=== PATIENT | female | born 1960 | race Caucasian/White ===

== ENCOUNTER → 2020-10-05 13:18 | Outpatient (BNVA) | payer OTHER, SELFPAY | PROVIDERS: PCP Internal Medicine; Referring Provider Internal Medicine; Visit Provider Urology ==

== ENCOUNTER → 2021-06-02 13:24 | Outpatient (BNVA) | payer OTHER, SELFPAY | PROVIDERS: PCP Internal Medicine | DX: N39.0 Urinary tract infection, site not specified (principal) | CPT/HCPCS: 99212 ==

== ENCOUNTER 2022-02-03 11:36 | Outpatient (REF) | payer OTHER, SELFPAY ==
--- NOTE | ~2022-02-03 | MM_ITS ---
EXAMINATION: MM SCREENING DIGITAL BREAST TOMOSYNTHESIS, BILATERAL CLINICAL INFORMATION: Screening. Asymptomatic. The lifetime risk of breast cancer based on the Tyrer-Cuzick Model is 9%. COMPARISON: Mammography: 07/15/2019; outside mammography 09/03/2018, 10/09/2016 ([facility]). TECHNIQUE: Digital breast tomosynthesis is performed in both the craniocaudal and mediolateral oblique views along with computer-aided detection (CAD). Synthesized 2D images are generated from the tomosynthesis. FINDINGS: There are scattered areas of fibroglandular density (ACR BI-RADS breast composition Category b). Parenchymal pattern is similar to prior studies. There are stable asymmetries. No significant mass or architectural abnormality or abnormal calcifications. The axilla and skin contours are unremarkable. Left breast again has stable oval nodule upper outer quadrant and an intramammary node posterior upper outer quadrant. Right breast again shows some focal duct ectasia central inner breast. There are no significant changes. MM/MM tomosynthesis screening BI IMPRESSION: No significant changes from prior exams. ASSESSMENT: BI-RADS 2: Benign RECOMMENDATION: Routine annual mammography screening. This patient's information was entered into a reminder system with a target due date for their next mammogram.
== END 2022-02-03 11:37 | disposition home or self-care (01) ==
LOC: HO.MAMMO 11:36
PROVIDERS: PCP Internal Medicine; Visit Provider Internal Medicine
DX: Z12.31 Encounter for screening mammogram for malignant neoplasm of breast (principal)
CPT/HCPCS: 77063; 77067

== ENCOUNTER 2022-02-23 10:08 | Outpatient (REF) | payer OTHER, SELFPAY ==
--- NOTE | ~2022-02-23 | MM_ITS ---
EXAMINATION: BONE DENSITOMETRY CLINICAL INDICATION: Menopause. COMPARISON: Baseline BD dated 07/15/2019. TECHNIQUE: Using a [employer] DXA System (software version: 13.1) manufactured by [employer], dual-energy x-ray absorptiometry was performed of the lumbar spine and left hip. The images are of good technical quality. Summary results are attached. FINDINGS: AP SPINE L1-L4: Current: BMD 1.013 g/cm2, Z-score 0.0, T-score -1.4, osteopenia, 0.5% increase from baseline (<5% change is not significant). Baseline: BMD 1.008 g/cm2. LEFT FEMUR, NECK: Current: BMD 0.655 g/cm2, Z-score -1.4, T-score -2.8, osteoporosis. Baseline: BMD 0.678 g/cm2. LEFT FEMUR, TOTAL: Current: BMD 0.651 g/cm2, Z-score -1.7, T-score -2.8, osteoporosis, 7.3% decrease from baseline (<5% change is not significant). Baseline: BMD 0.702 g/cm2. IDENTIFIED RISK FACTORS: Early menopause, secondary osteoporosis, osteoporosis, 3 or more alcoholic drinks per day, low body weight. HISTORY OF FRACTURE: None listed. MEDICATIONS: Calcium or multivitamin. MM/XR DEXA axial skeleton IMPRESSION: 1. DIAGNOSIS: Osteoporosis based on the lowest T-score value of -2.8 in the femoral neck and total femur applying World Health Organization criteria. 2. 10-YEAR FRACTURE RISK PREDICTION, FRAX: Major osteoporotic fracture (clinical spine, forearm, hip or shoulder) 13.8%. Hip fracture 4.2%. 3. Treatment Recommendations: NOF guidelines recommend consideration for treatment in postmenopausal women and men age 50 and older presenting with the following: -A hip or vertebral (clinical or morphometric) fracture. -T-score less than or equal to -2.5 at the femoral neck or spine after appropriate evaluation to exclude secondary causes. -Low bone mass at the hip or spine and a 10-year fracture probability by FRAX of greater than or equal to 3% for hip fracture or greater than or equal to 20% for major osteoporotic fracture based on the [place] adapted WHO algorithm. 4. Other Recommendations: All treatment decisions require clinical judgment and consideration of individual patient factors, including patient preferences, comorbidities, previous drug use, risk factors not captured in the FRAX model (e.g. frailty, falls, vitamin D deficiency, increased bone turnover, interval significant decline in bone density) and possible under or overestimation of fracture risk by FRAX. Additional medical evaluation for secondary cause of low bone mineral density may be appropriate. FUTURE SCAN RECOMMENDATION: People with diagnosed cases of osteoporosis or at high risk for fracture should have regular bone mineral density tests. For patients eligible for Medicare, routine testing is allowed once every 2 years. The testing frequency can be increased to one year for patients who have rapidly progressing disease, those who are receiving or discontinuing medical therapy to restore bone mass, or have additional risk factors.
== END 2022-02-23 10:09 | disposition home or self-care (01) ==
LOC: HO.MAMMO 10:08
PROVIDERS: Visit Provider Internal Medicine
DX: Z13.820 Encounter for screening for osteoporosis (principal); Z78.0 Asymptomatic menopausal state; M81.0 Age-related osteoporosis without current pathological fracture
CPT/HCPCS: 77080

== ENCOUNTER 2022-04-14 09:29 | Outpatient (REF) | payer OTHER, SELFPAY ==
--- NOTE | ~2022-04-14 | US_ITS ---
EXAMINATION: US ABDOMEN COMPLETE CLINICAL INFORMATION: Elevated liver test, rule out NAFLD. COMPARISON: None. TECHNIQUE: Real-time imaging of the abdominal viscera. FINDINGS: PANCREAS: Normal. ABDOMINAL AORTA: The proximal, mid, and distal segments are normal in caliber. INFERIOR VENA CAVA: Visualized portions are normal. LIVER: The liver is normal in size. The liver contour is normal. There is mild increased liver echogenicity. No focal hepatic lesion. There is no intrahepatic biliary duct dilatation seen. GALLBLADDER: There are small echogenic non-mobile polyp measuring 0.3 x 0.3 x 0.2 cm. The gallbladder is physiologically distended without evidence of stones, sludge, wall thickening or pericholecystic fluid. COMMON BILE DUCT: Normal in caliber measuring 0.5 cm in diameter. RIGHT KIDNEY: Normal. No hydronephrosis. No renal calculi or focal parenchymal lesions. The kidney measures 12.3 cm in maximum dimension. LEFT KIDNEY: Normal. No hydronephrosis. No renal calculi or focal parenchymal lesions. The kidney measures 11.6 cm in maximum dimension. SPLEEN: Normal. The spleen measures 12.6 cm in maximum dimension. FREE FLUID: None. US/US abdomen complete IMPRESSION: Mild increased liver echogenicity without any focal lesion or intrahepatic ductal dilatation. A small gallbladder polyp. No echogenic stones seen. The rest of the abdominal ultrasound is unremarkable.
== END 2022-04-14 09:30 | disposition home or self-care (01) ==
LOC: HO.HMGCX 09:29
PROVIDERS: Visit Provider Internal Medicine
DX: R79.89 Other specified abnormal findings of blood chemistry (principal)
CPT/HCPCS: 76700

== ENCOUNTER 2022-05-12 09:21 | Outpatient (REF) | payer OTHER, SELFPAY ==
[2022-05-12 15:12] LABS: CT PCR NOT DETECTED (Not Detect.); NG PCR NOT DETECTED (Not Detect.)
[2022-05-18 20:32] LABS: HPV mRNA E6/E7 rflx Not Detected (Not Detected)
== END 2022-05-12 09:22 | disposition home or self-care (01) ==
LOC: HO.LAB 09:21
PROVIDERS: Visit Provider Advanced Practice Midwife
DX: Z01.419 Encounter for gynecological examination (general) (routine) without abnormal findings (principal); Z11.51 Encounter for screening for human papillomavirus (HPV)
CPT/HCPCS: 87491; 87591; 87624; 88142

== ENCOUNTER → 2022-05-30 13:38 | Outpatient (BNVA) | payer OTHER, SELFPAY | PROVIDERS: PCP Internal Medicine; Visit Provider Orthopaedic Surgery | DX: M18.11 Unilateral primary osteoarthritis of first carpometacarpal joint, right hand (principal) | CPT/HCPCS: 99202 ==

== ENCOUNTER 2022-07-13 09:28 | Outpatient (REF) | payer OTHER, SELFPAY ==
[2022-07-13 11:21] LABS: Appearance Urine Cloudy; Color Urine Dark Yellow; Glucose Urine UA Negative (Negative); Leukocyte Esterase Urine Moderate (2+) (Negative); Nitrite Urine Negative (Negative); Specific Gravity - Urine 1.015 (1.005-1.025); UMIC TRIGGER UA YES; Urine Blood Large (3+) (Negative); Urine Ketones Negative (Negative); Urine Protein Negative (Neg-Trace)
[2022-07-13 11:32] LABS: Bacteria Urine 1+ (None Seen); Hyaline Casts Urine 0-2 /LPF (0-2); RBC Urine >20 /HPF (0-2); WBC Urine >50 /HPF (0-5)
== END 2022-07-13 09:29 | disposition home or self-care (01) ==
LOC: HO.HMGCLDS 09:28
PROVIDERS: PCP Internal Medicine; Visit Provider Urology
DX: N39.0 Urinary tract infection, site not specified (principal)
CPT/HCPCS: 81001; 87086

== ENCOUNTER → 2022-08-17 15:29 | Outpatient (BNVA) | payer OTHER, SELFPAY | PROVIDERS: PCP Internal Medicine; Visit Provider Urology | DX: N39.0 Urinary tract infection, site not specified (principal); N95.9 Unspecified menopausal and perimenopausal disorder; Z79.899 Other long term (current) drug therapy | CPT/HCPCS: 99212 ==

== ENCOUNTER 2022-09-26 08:43 | Outpatient (REF) | payer OTHER, SELFPAY ==
--- NOTE | ~2022-09-26 | XR_ITS ---
EXAMINATION: XR HAND, RIGHT CLINICAL INFORMATION: M79.641 - Pain in right hand COMPARISON: None TECHNIQUE: PA, lateral, and oblique views of the right hand. FINDINGS: There is mild osteopenia. No periarticular demineralization. No acute or healing fracture, dislocation, destructive process. Ulnar variance is within neutral. Mild osteoarthritic changes involve the first carpometacarpal joint. The MCP joints show no narrowing. There are probable small erosions medial base fourth and fifth proximal phalanges. The interphalangeal joints are unremarkable. XR/XR hand RT min 3V IMPRESSION: 1. Mild osteoarthritis first CMC joint. 2. Small erosions medial base fourth and fifth proximal phalanges. No joint narrowing.
== END 2022-09-26 08:44 | disposition home or self-care (01) ==
LOC: HO.HOSX 08:43
PROVIDERS: PCP Internal Medicine; Visit Provider Orthopaedic Surgery
DX: M18.0 Bilateral primary osteoarthritis of first carpometacarpal joints (principal)
CPT/HCPCS: 20600; 73130; 99212; J1020; J1100

== ENCOUNTER → 2023-02-14 10:10 | Outpatient (BNVA) | payer OTHER, SELFPAY | PROVIDERS: PCP Internal Medicine; Visit Provider Orthopaedic Surgery | DX: M18.11 Unilateral primary osteoarthritis of first carpometacarpal joint, right hand (principal); M77.8 Other enthesopathies, not elsewhere classified | CPT/HCPCS: 20551; 20600; 99212; J1020; J1100 ==

== ENCOUNTER 2023-07-19 10:20 | Outpatient (REF) | payer OTHER, SELFPAY ==
--- NOTE | ~2023-07-19 | MM_ITS ---
EXAMINATION: MM SCREENING DIGITAL BREAST TOMOSYNTHESIS, BILATERAL CLINICAL INFORMATION: Screening. Asymptomatic. COMPARISON: Mammography: This study is compared with prior exams dating back to 2017. TECHNIQUE: Digital breast tomosynthesis is performed in both the craniocaudal and mediolateral oblique views along with computer-aided detection (CAD). Synthesized 2D images are generated from the tomosynthesis. FINDINGS: There are scattered areas of fibroglandular density (ACR BI-RADS breast composition Category b). There are no significant masses, abnormal calcifications, or other abnormalities. There is a well-circumscribed, slowly calcifying upper outer quadrant benign mass in the left breast warehouse representative of an involuting fibroadenoma. Few, or other, benign calcifications are present in each breast. MM/MM tomosynthesis screening BI IMPRESSION: No mammographic evidence of malignancy. ASSESSMENT: BI-RADS BI-RADS 2 - Benign Findings RECOMMENDATION: Routine annual mammography screening. 1 year F/U This examination should not preclude the clinical evaluation of a suspicious palpable abnormality. This patient's information was entered into a reminder system with a target due date for their next mammogram.
== END 2023-07-19 10:21 | disposition home or self-care (01) ==
LOC: HO.MAMMO 10:20
PROVIDERS: PCP Internal Medicine; Visit Provider Internal Medicine
DX: Z12.31 Encounter for screening mammogram for malignant neoplasm of breast (principal)
CPT/HCPCS: 77063; 77067

== ENCOUNTER → 2023-07-19 11:00 | Outpatient (BNV) | payer OTHER, SELFPAY | PROVIDERS: PCP Internal Medicine; Visit Provider Radiology Diagnostic Radiology | DX: Z12.31 Encounter for screening mammogram for malignant neoplasm of breast (principal) | CPT/HCPCS: 77063; 77067 ==

== ENCOUNTER 2023-08-21 09:27 | Outpatient (AMB) | payer OTHER, SELFPAY ==
--- NOTE | 2023-08-21 09:41 | MHC.OFFVIS ---
Intake Vital Signs 08/21/23 09:44 Height 5 ft 8 in Weight 124 lb BMI 18.9 Intake Visit Reasons: O/V RT index & CMC jt injection02/14/23 Intake Note: Maisha 63 yr old female presents today s/p RT index & CMC jt injection from 02/14/23. States last injection did not help as much as the 1st one did. States she wants to discuss disability status. 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 Allergies acetaminophen [From Vicodin] Allergy (Intermediate, Verified 08/21/23 09:48) Rash hydrocodone [From Vicodin] Allergy (Intermediate, Verified 08/21/23 09:48) Rash HPI O/V RT index & CMC jt injection02/14/23 HPI Details Maisha is a 63 year old right hand dominant woman who returns to discuss her right basal joint OA. She was last injected on 02/14/23, and she says this was not as helpful as her previous injection on 09/26/22. She also received an injection to her right index finger dorsal to the MCP joint. She complains of pain in her right thumb . She says her hand is often swollen and limits her daily activities due to her pain. She is hesitant to discuss surgery at this time. She says this is her busy time at work making [employer]. She says she has started to use gadgets at home to help her with daily activities, such as opening jars. She wants to talk about disability paperwork today. 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 [facility] Medical History Chronic UTI (urinary tract infection) Fatty liver Recurrent UTI Surgical History Hx of appendectomy Hx of section Hx of tubal ligation Family History Mother Dementia Father Leukemia Brother Leukemia HTN (hypertension) Social History Household Members: Significant Other Housing: Apartment Alcohol intake: current Alcohol intake frequency: 0-2 drinks per day Alcohol type: hard liquor Patient Tobacco Use Status: Former Tobacco user Tobacco use type: Cigarette Years Smoked: 10 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al status: employed 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: [employer] provision / rt hand Sexual orientation: Straight/Heterosexual Gender identity: Female Physical Exam Vital Signs: BMI result Body Mass Index 18.9 Const General: no acute distress and alert Orientation/consciousness: patient oriented x3 Neuro General: patient oriented x3 Extrem Other: Evaluation of Right Upper Extremity: The patient is alert, oriented, and in no acute distress Neuro: Median, Ulnar, Radial nerves motor and sensory intact and sensation is normal to the tips of all digits Vascular: Cap refill brisk ROM: Can bring fingers closed to a fist and back out to full extension. She can oppose her thumb to all fingers. She is most TTP over the right thumb Basal joint + Shoulder sign + CMC grind No tenderness over the MCP joint Mildly tender over the 1st Dorsal compartment, but no swelling Psych Appearance: grossly normal Affect: normal affect Attitude: cooperative Assessment & Plan Assessment & Plan (1) Arthritis of carpometacarpal (CMC) joint of right thumb: Code(s): M18.11 - Unilateral primary osteoarthritis of first carpometacarpal joint, right hand (2) Tendinitis of finger of right hand: Code(s): M77.8 - Other enthesopathies, not elsewhere classified (3) Osteoarthritis of carpometacarpal (CMC) joint of left thumb: Code(s): M18.12 - Unilateral primary osteoarthritis of first carpometacarpal joint, left hand Plan Assessment & Plan: 1. Right Basal joint arthritis, S/P repeat injection Date of injections: 02/14/23, 09/26/22 This is her most symptomatic complaint I educated her about this condition. We discussed operative and non operative treatment options. She is not interested in surgery at this time, which is understandable. She is not interested in an injection today, as she knows it would likely not work well if she had to continue with her heavy activity in the weeks after the injection. She also cannot take off time from work right now as [place] is a very busy season for [employer]. I discussed the importance of activity modification. She should try to minimize or avoid any heavy or repetitive pinching, gripping or twisting activities This will be difficult as these are the common actions required by her job, and she says her job does not have any light duty for her to perform. She will continue to wear her comfort cool brace with daily activities. I explained that we do not have any particular paperwork here for disability and do not normally declare disability. I do think that it is reasonable to say that with her basal joint arthritis heavy and repetitive pinching and gripping activities exacerbate this condition and make it difficult for her. She will speak with her PCP concerning any paperwork necessary for her to proceed with filing for disability. She would like to follow up after [place] to discuss treatment options, including injections. This should be the next available appointment 2. Left basal joint arthritis Much less bothersome. 3. Tendinitis involving the right 2nd MCP joint extensors,S/P repeat injection Date of injections: 02/14/23, 09/26/22 This is less bothersome today. Scribed for Meche Patel MD by Delgado Quiroga, center medical and lab director, on 08/21/23 at 10:05 AM, EST. Coding Level of Care Code Est Pt Level 3 (08450) Diagnoses Arthritis of carpometacarpal (CMC) joint of right thumb M18.11 Tendinitis of finger of right hand M77.8 Osteoarthritis of carpometacarpal (CMC) joint of left thumb M18.12
[2023-08-21 09:44] VITALS: BMI 18.9
== END 2023-08-21 10:06 | disposition home or self-care (01) ==
PROVIDERS: PCP Internal Medicine; Visit Provider Orthopaedic Surgery
DX: M18.0 Bilateral primary osteoarthritis of first carpometacarpal joints (principal); M77.8 Other enthesopathies, not elsewhere classified
CPT/HCPCS: 99213

== ENCOUNTER → 2023-08-21 09:27 | Outpatient (BNVA) | payer OTHER, SELFPAY | PROVIDERS: PCP Internal Medicine; Visit Provider Orthopaedic Surgery | DX: M18.11 Unilateral primary osteoarthritis of first carpometacarpal joint, right hand (principal); M18.12 Unilateral primary osteoarthritis of first carpometacarpal joint, left hand; M77.8 Other enthesopathies, not elsewhere classified | CPT/HCPCS: 99212 ==

== ENCOUNTER 2023-08-31 08:42 | Outpatient (AMB) | payer OTHER, SELFPAY ==
--- NOTE | 2023-08-31 08:53 | A.OFFVIS_ITS ---
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 She is doing well with no concerns. Attempting to eat a healthy diet with calcium and vitamin D and stays active with exercise. Currently not sexually active. Denies any vaginal dryness or irritation. STI testing offered; she accepts. Last pap smear; 04/2022. Last mammogram; 12/2022. Colonoscopy is UTD. Denies any family history of breast, ovarian or colon cancer. Discussed her transitioning of her [facility] with a [facility] and paralysis. Also the recent loss of her brother from lymphoma this year. [facility] Medical History Fatty liver Chronic UTI (urinary tract infection) Recurrent UTI Surgical History Hx of tubal ligation Hx of section Hx of appendectomy Family History Mother Dementia Father Leukemia Brother Leukemia HTN (hypertension) Social History Household Members: Significant Other Housing: Apartment Alcohol intake: current Alcohol intake frequency: 0-2 drinks per day Alcohol type: hard liquor Patient Tobacco Use Status: Former Tobacco user Tobacco use type: Cigarette Years Smoked: 10 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al status: employed 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: [employer] provision / rt hand Sexual orientation: Straight/Heterosexual Gender identity: Female Female Reproductive History Menstrual Menopause type: natural Total pregnancies: 2 Number of Living Children: 2 Date of last pap smear: 05/16/22 Date of Mammogram: 07/19/23 Review of Systems Const All systems reviewed & are unremarkable except as noted in HPI and below Reports as per HPI Eyes Reports no additional complaints ENT Reports no additional complaints Card Reports no additional complaints Resp Reports no additional complaints GI Reports as per HPI and Reports no additional complaints Reports as per HPI Musc Reports no additional complaints Skin/Breast Reports as per HPI Neuro Reports no additional complaints Psych Reports no additional complaints Endo Reports no additional complaints Julio/Lymph Reports no additional complaints Aller/Immun Reports no additional complaints Physical Exam Const General: cooperative, healthy appearing, no acute distress, well developed and alert Orientation/consciousness: patient oriented x3 HEENT Head: Yes normal to inspection Eyes General: appearance normal, both eyes and all related structures Neck Neck: Yes normal visual inspection Thyroid: Thyroid normal Chest Chest palpation & inspection: normal inspection of the chest and other (no puckering, dimpling, peau de orange, retraction, discharge, masses) Breast/axilla inspection: normal inspection of the breasts Breast/axilla palpation: normal palpation of the breasts Resp Effort & Inspection: normal respiratory effort GI Inspection: Yes normal to inspection Palpation (GI): Soft to palpation Rectal Exam - Female: deferred General: Yes bladder normal to palpation External Female Exam: normal external appearance and normal appearance of the urethra Speculum Exam - Vagina: normal appearance of the vagina, normal palpation, normal vaginal discharge and vagina atrophic Speculum Exam - Cervix: normal appearance of the cervix and normal palpation Bimanual exam- vagina & uterus: normal bimanual exam, normal palpation, uterine size normal, bladder normal to palpation, normal palpation and non-tender Bimanual Exam- Adnexa, other: no masses Skin General skin exam: no rashes or lesions noted Rashes: no rashes Neuro General: patient oriented x3 Cognition (Neuro): normal cognition Extrem General: Yes normal to inspection Psych Attitude: cooperative Thought process: Normal thought process present Assessment & Plan Assessment & Plan (1) Encounter for well woman exam with routine gynecological exam: Code(s): Z01.419 - Encounter for gynecological examination (general) (routine) without abnormal findings Plan: Discussed: Current recommendations for pap smears per ASCCP guidelines. Breast awareness, periodic self breast exams and yearly mammogram. Maintain a healthy lifestyle, well balanced diet including Calcium 1,200 mg and Vitamin D 600 IU daily, and routine exercise. Contact the office with any postmenopausal bleeding. All of her questions and concerns were addressed to the best of my ability. RTO in 1 year for annual unit assistant exam. Coding Level of Care Code Est Pt Prev Care 40-64y(21491) Diagnoses Encounter for well woman exam with routine gynecological exam Z01.419
[2023-08-31 08:57] VITALS: BP 136/82; BMI 18.8
== END 2023-08-31 10:26 | disposition home or self-care (01) ==
PROVIDERS: PCP Internal Medicine; Visit Provider Advanced Practice Midwife
DX: Z01.419 Encounter for gynecological examination (general) (routine) without abnormal findings (principal)
CPT/HCPCS: 99396

== ENCOUNTER → 2023-08-31 08:42 | Outpatient (BNVA) | payer OTHER, SELFPAY | PROVIDERS: PCP Internal Medicine; Visit Provider Advanced Practice Midwife | DX: Z01.419 Encounter for gynecological examination (general) (routine) without abnormal findings (principal) | CPT/HCPCS: 99396 ==

== ENCOUNTER 2023-09-25 15:08 | Outpatient (AMB) | payer OTHER, SELFPAY ==
[2023-09-25 15:52] VITALS: BMI 18.7
--- NOTE | 2023-09-25 15:52 | A.OFFVIS_ITS ---
Intake Vital Signs 09/25/23 15:52 Height 5 ft 8 in Weight 123 lb BMI 18.7 Intake Visit Reasons: OV- R Basal JT INJ w/ kaitlyn Intake Note: Maisha 63 yr old female presents today s/p RT index & CMC jt injection from 02/14/23. States she would like to repeat injection today. Patient also dropped off paper to be filled out . Allergies acetaminophen [From Vicodin] Allergy (Intermediate, Verified 09/25/23 16:02) Rash hydrocodone [From Vicodin] Allergy (Intermediate, Verified 09/25/23 16:02) Rash HPI OV- R Basal JT INJ w/ kaitlyn HPI Details Maisha is a 63 year old right hand dominant woman who returns for a right basal joint injection. She was last injected on 02/14/23, and she says this was not as helpful as her previous injection on 09/26/22. She also received an i njection to her right index finger dorsal to the MCP joint. She complains of pain in her right thumb . She says her hand is often swollen and limits her daily activities due to her pain. She is hesitant to discuss surgery at this time. She says this is her busy time at work making [employer]. She is seen today with [place] paperwork to be filled out for PTO. This was left with the front office staff. She wants to talk about disability paperwork today. 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 COUNTS INCLUDE 234 BEDS AT THE [facility] Medical History Fatty liver Chronic UTI (urinary tract infection) Recurrent UTI Surgical History Hx of tubal ligation Hx of section Hx of appendectomy Family History (Updated 08/31/23 @ 09:27 by Aleisha Warren CNM) Mother Dementia Father Leukemia Brother Leukemia HTN (hypertension) Social History Household Members: Significant Other Housing: Apartment Alcohol intake: current Alcohol intake frequency: 0-2 drinks per day Alcohol type: hard liquor Patient Tobacco Use Status: Former Tobacco user Tobacco use type: Cigarette Years Smoked: 10 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al status: employed 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: [employer] provision / rt hand Sexual orientation: Straight/Heterosexual Gender identity: Female Physical Exam Vital Signs: BMI result Body Mass Index 18.7 Const General: no acute distress and alert Orientation/consciousness: patient oriented x3 Neuro General: patient oriented x3 Extrem Other: Evaluation of Right Upper Extremity: The patient is alert, oriented, and in no acute distress Neuro: Median, Ulnar, Radial nerves motor and sensory intact and sensation is normal to the tips of all digits Vascular: Cap refill brisk ROM: Can bring fingers closed to a fist and back out to full extension. She can oppose her thumb to all fingers. She is most TTP over the right thumb Basal joint + Shoulder sign + CMC grind No tenderness over the MCP joint Mildly tender over the 1st Dorsal compartment, but no swelling Psych Appearance: grossly normal Affect: normal affect Attitude: cooperative Office Procedures Fracture Care Details: No fracture, injection Fracture Billing Code: Fracture Billing Code Assessment & Plan Assessment & Plan (1) Arthritis of carpometacarpal (CMC) joint of right thumb: Code(s): M18.11 - Unilateral primary osteoarthritis of first carpometacarpal joint, right hand (2) Tendinitis of finger of right hand: Code(s): M77.8 - Other enthesopathies, not elsewhere classified (3) Osteoarthritis of carpometacarpal (CMC) joint of left thumb: Code(s): M18.12 - Unilateral primary osteoarthritis of first carpometacarpal joint, left hand Plan Assessment & Plan: 1. Right Basal joint arthritis, S/P repeat injection Date of injections: 02/14/23, 09/26/22 This is her most symptomatic complaint I educated her about this condition. We discussed operative and non operative treatment options. She is not interested in surgery at this time, which is understandable. I discussed the importance of activity modification. She should try to minimize or avoid any heavy or repetitive pinching, gripping or twisting activities This will be difficult as these are the common actions required by her job, and she says her job does not have any light duty for her to perform. She was fitted for a new comfort cool brace today. She will continue to wear her comfort cool brace with daily activities. She has left some [facility] paperwork with the front staff to be completed I do think that it is reasonable to say that with her basal joint arthritis heavy and repetitive pinching and gripping activities exacerbate this condition and make it difficult for her. Injection #1 : The risks and benefits of a steroid injection including but not limited to risk of damage to blood vessels, nerve, tendon, infection, skin bleaching, persistent or worsening pain, and failure to improve symptoms were discussed with the patient and they wish to proceed with the steroid injection. Once consent was obtained the skin over the dorsum of the right basal joint was sterilely prepped. The joint was then injected with a combination of 1 mL of (40 mg/ml} Depo-Medrol and 1% plain Lidocaine. The patient appears to have tolerated the procedure well and with no complications. She had good early relief before leaving clinic today. She knows that they may not have another steroid injection into this joint for least 4 months. She brought in some [facility] paperwork, and noted that her workplace told her that she should fill this out and given to us so that we could give her 3 months off paid leave. In reviewing the paperwork I think that we can justify giving her up to 3 weeks off. 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 We gave her a steroid injection today. Giving her this time off will be helpful to allow the injection to work to bring down the inflammation in her arthritic joint. Our plan is then to have her follow-up on 10/16/2023 to see how she is doing and then return her to work. She was given a note for work today saying saying she will remain out of work from 09/25/23-10/16/23, which will be her follow up appointment She will follow up on 10/16/23, with a PA to see how she is doing and to give her a note to return to work. Note that her workplace does not have any light duty available. Our Intention is to let her try to get back to work and see how it goes. If she continues to have trouble, she may schedule an appointment with me to talk about possible operative intervention. I did explain to her that after surgery, when she would be in the postoperative period and would not be allowed to do any pinching or gripping against the thumb for 3 months, that this would be a time when that [facility] paid leave would typically be appropriate. 2. Left basal joint arthritis 3. Tendinitis involving the right 2nd MCP joint extensors, S/P repeat injection Date of injections: 02/14/23, 09/26/22 Please note that greater than 40 minutes was spent with this patient evaluating the patient and evaluating radiographs, coming up with a treatment plan and discussing possible treatment options, as well as reviewing [facility] paperwork requirements for time off and determining how much time off she needed for this particular time. Scribed for Meche Patel MD by Delgado Quiroga, medical i d sales, on 09/25/23 at 4:20 PM, EST. Coding Level of Care Code Est Pt Level 5 (76281) Diagnoses Arthritis of carpometacarpal (CMC) joint of right thumb M18.11 Tendinitis of finger of right hand M77.8 Osteoarthritis of carpometacarpal (CMC) joint of left thumb M18.12 CPT Codes Fracture Care - Fracture Billing Code: Fracture Billing Code ([id number])
== END 2023-09-25 16:48 | disposition home or self-care (01) ==
PROVIDERS: PCP Internal Medicine; Visit Provider Orthopaedic Surgery
DX: M18.0 Bilateral primary osteoarthritis of first carpometacarpal joints (principal); M77.8 Other enthesopathies, not elsewhere classified
CPT/HCPCS: 20600; 99215

== ENCOUNTER → 2023-09-25 15:08 | Outpatient (BNVA) | payer OTHER, SELFPAY | PROVIDERS: PCP Internal Medicine; Visit Provider Orthopaedic Surgery | DX: M18.11 Unilateral primary osteoarthritis of first carpometacarpal joint, right hand (principal); M77.8 Other enthesopathies, not elsewhere classified; M18.12 Unilateral primary osteoarthritis of first carpometacarpal joint, left hand | CPT/HCPCS: 20600; 99212; J1020 ==

== ENCOUNTER 2023-09-28 12:29 | Outpatient (AMB) | payer OTHER, SELFPAY ==
--- NOTE | 2023-09-28 12:30 | MHC.OFFVIS ---
Intake Intake Visit Reasons: Chronic UTI's- 1yr follow up Intake Note: Annual follow up UTI Medications: nitrofurantoin Blood thinners: none Chronic Care Nurse Required: No Accompanied by: Self / Same As Patient Allergies acetaminophen [From Vicodin] Allergy (Intermediate, Verified 09/25/23 16:02) Rash hydrocodone [From Vicodin] Allergy (Intermediate, Verified 09/25/23 16:02) Rash Medication List - Last Reconciled 09/28/23 by Clarita Vasquez MD alendronate 70 mg PO QWEEK hydrochlorothiazide 25 mg PO DAILY nitrofurantoin macrocrystal 100 mg PO BEDTIME 90 days HPI HPI Comments History of Present Illness Details Aleisha is a 62-year-old female postmenopausal woman followed for chronic UTIs Doing well on Macrobid antibiotic suppressive therapy. Tries to eat a healthy diet including Calcium and Vitamin D and stays active. Currently less sexually active. The patient has been doing well on daily Macrobid will continue current therapy. Review of chart: Imaging: reviewed - 04/14/22-US ABDOMEN kidneys WNL, no stones Plan: Macrobid prn post sexual activity FU in one year [facility] Medical History Fatty liver Chronic UTI (urinary tract infection) Recurrent UTI Surgical History Hx of tubal ligation Hx of section Hx of appendectomy Family History (Updated 08/31/23 @ 09:27 by Aleisha Warren CNM) Mother Dementia Father Leukemia Brother Leukemia HTN (hypertension) Social History Household Members: Significant Other Housing: Apartment Alcohol intake: current Alcohol intake frequency: 0-2 drinks per day Alcohol type: hard liquor Patient Tobacco Use Status: Former Tobacco user Tobacco use type: Cigarette Years Smoked: 10 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al status: employed 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: [employer] provision / rt hand Sexual orientation: Straight/Heterosexual Gender identity: Female Review of Systems Const All systems reviewed & are unremarkable except as noted in HPI and below Reports no additional complaints Eyes Reports no additional complaints ENT Reports no additional complaints Card Denies dyspnea Resp Denies cough and Denies dyspnea GI Reports no additional complaints Reports no additional complaints Musc Reports no additional complaints Skin/Breast Denies rash and Denies unusual bruising Neuro Reports no additional complaints Psych Reports no additional complaints Endo Reports no additional complaints Julio/Lymph Reports no additional complaints Aller/Immun Reports no additional complaints Assessment & Plan Assessment & Plan (1) Chronic UTI (urinary tract infection): Code(s): N39.0 - Urinary tract infection, site not specified Plan Plan: Macrobid prn post sexual activity FU in one year Medications: Refilled nitrofurantoin macrocrystal must administer with a meal/food 100 mg PO BEDTIME 90 days 30 caps 1RF Telehealth Telehealth Location of provider rendering services: practice address Location of patient: address on file Patient Identification confirmed using: Name, : Yes Telehealth method: voice only Patient verbally consented to treatment: Yes Patient verbally consented to billing insurance company: Yes Patient informed of any privacy concerns related to visit: Yes Minutes spent on Phone/Video with Pt.: 15 Coding Level of Care Code Tele Est Pt Level 3 (68544) Diagnoses Chronic UTI (urinary tract infection) N39.0
== END 2023-09-28 13:14 | disposition home or self-care (01) ==
LOC: HO.HUSH 12:29
PROVIDERS: PCP Internal Medicine; Visit Provider Urology
DX: N39.0 Urinary tract infection, site not specified (principal)
CPT/HCPCS: 99213

== ENCOUNTER → 2023-09-28 12:29 | Outpatient (BNVA) | payer OTHER, SELFPAY | PROVIDERS: PCP Internal Medicine; Visit Provider Urology ==

== ENCOUNTER 2023-10-12 09:07 | Outpatient (REF) | payer OTHER, SELFPAY ==
[2023-10-12 14:29] LABS: MANUAL DIFF FLAG NO
[2023-10-12 14:52] LABS: Basophils Absolute Auto 0.1 X10*3/uL (0.0-0.2); Basophils Percent Auto 0.7 % (0-2); Eosinophils Absolute Auto 0.1 X10*3/uL (0.0-0.4); Eosinophils Percent Auto 1.4 % (0-4); Hematocrit 45.2 % (37.0-47.0); Hemoglobin 15.8 g/dl (12.0-16.0); Imm Gran Abs Auto 0.03 X10*3/uL (0.00-0.03); Imm Gran Pct Auto 0.3 % (0.0-0.4); Lymphocytes Absolute Auto 2.4 X10*3/uL (1.2-4.9); Lymphocytes Percent Auto 27.2 % (20-40); Mean Corpuscular Volume 97.2 fL (80.0-98.0); Mean Platelet Volume 10.8 fL (9.4-12.3); Monocytes Absolute Auto 1.1 X10*3/uL (0.1-1.2); Monocytes Percent Auto 12.9 % (2-11); Neutrophils Absolute Auto 5.1 x10*3/uL (2.0-8.3); Neutrophils Percent Auto 57.5 % (45-73); Platelet Count 225 X10*3/uL (160-400); Red Blood Count 4.65 X10*6/uL (4.20-5.50); Red Cell Distribution Width 11.7 % (11.0-16.0); White Blood Count 8.9 X10*3/uL (4.8-10.8)
[2023-10-12 15:20] LABS: Alanine Aminotransferase 79 U/L (0-31); Albumin Level 4.4 g/dL (3.5-5.0); Alkaline Phosphatase 132 U/L (39-117); Anion Gap 19 (12-20); Aspartate Amino Transferase 123 U/L (5-31); Bilirubin Total 1.4 mg/dL (0.0-1.0); Blood Urea Nitrogen 5 mg/dL (9-16); Calcium 9.9 mg/dL (8.4-10.2); Carbon Dioxide 25 mmol/L (22-29); Chloride 99 mmol/L (96-108); Cholesterol 267 mg/dL (<200); Estimated Glomerular Filt Rate > 60; Glucose Random 98 mg/dL (60-115); HDL Cholesterol 119 mg/dL (>40); LDL Cholesterol Calculated 124 mg/dL (<100); Potassium 2.6 mmol/L (3.3-5.1); Sodium 140 mmol/L (135-145); Total Protein 7.5 g/dL (6.5-8.0); Triglycerides 123 mg/dL (<150)
== END 2023-10-12 09:08 | disposition home or self-care (01) ==
LOC: HO.CHCLDS 09:07
PROVIDERS: Visit Provider Internal Medicine
DX: I10 Essential (primary) hypertension (principal)
CPT/HCPCS: 36415; 80053; 80061; 85025

== ENCOUNTER 2023-10-15 08:50 | Outpatient (REF) | payer OTHER, SELFPAY ==
[2023-10-15 15:53] LABS: Gamma Glutamyl Transpeptidase 829 U/L (7-33); Iron 164 mcg/dL (30-160); Percent Iron Saturation 66 % (15-50); Total Iron Binding Capacity 248 mcg/dL (228-428); Unsaturated Iron Binding 84 ug/dL
[2023-10-15 16:02] LABS: Ferritin 392 ng/mL (10-250)
[2023-10-16 04:09] LABS: HBc Num1 0.23 S/CO (0.00-0.79); HBsAGNum1 0.41 S/CO (0.00-0.99); Hepatitis B Core Antibody Nonreactive (Nonreactive); Hepatitis B Surface Antigen Negative (Negative)
[2023-10-16 05:41] LABS: HBS Num1 0.26 mIU/mL (0-7.99); ~HepC Num1 0.06 S/CO (0.00-0.79); ~Hepatitis B Surface Antibody NONREACTIVE (Nonreactive); ~Hepatitis C Antibody Nonreactive (Nonreactive)
[2023-10-22 15:23] LABS: Mitochondrial Antibodies NEGATIVE (NEGATIVE)
== END 2023-10-15 08:51 | disposition home or self-care (01) ==
LOC: HO.CHCLDS 08:50
PROVIDERS: Visit Provider Internal Medicine
DX: R74.01 Elevation of levels of liver transaminase levels (principal)
CPT/HCPCS: 36415; 82728; 82977; 83540; 86381; 86704; 86706; 86803; 87340

== ENCOUNTER 2023-10-16 14:19 | Outpatient (AMB) | payer OTHER, SELFPAY ==
--- NOTE | 2023-10-16 14:42 | MHC.OFFVIS ---
Intake Intake Visit Reasons: O/V Rt Thumb CMC s/p injection 09/25/23 Intake Note: Maisha 63 yr old female presents today s/p RT thumb & CMC jt injection from 09/25/23. Patient reports her last injection gave her a couple days of relief, however she is experiencing . She would like to know other options to help her with the pain and to talk a little bit about surgery. Allergies acetaminophen [From Vicodin] Allergy (Intermediate, Verified 10/16/23 14:46) Rash hydrocodone [From Vicodin] Allergy (Intermediate, Verified 10/16/23 14:46) Rash HPI O/V Rt Thumb CMC s/p injection 09/25/23 HPI Details 63-year-old female who presents in the office today for a follow up of right thumb pain. The patient was last in the office on 09/25/[address] Patel. She is here today to discuss her return to work status. While in the office today the patient reports her last injection gave her a few days of relief. She is interested in discussing other options for pain relief. [facility] Medical History (Reviewed 08/31/23 @ 09:02 by Berna Brannon [facility]) Fatty liver Chronic UTI (urinary tract infection) Recurrent UTI Surgical History Hx of tubal ligation Hx of section Hx of appendectomy Family History (Updated 08/31/23 @ 09:27 by Aleisha Warren CNM) Mother Dementia Father Leukemia Brother Leukemia HTN (hypertension) Social History Household Members: Significant Other Housing: Apartment Alcohol intake: current Alcohol intake frequency: 0-2 drinks per day Alcohol type: hard liquor Patient Tobacco Use Status: Former Tobacco user Tobacco use type: Cigarette Years Smoked: 10 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al status: employed 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: [employer] provision / 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 Sexual orientation: Straight/Heterosexual Gender identity: Female Review of Systems Const All systems reviewed & are unremarkable except as noted in HPI and below Physical Exam Const General: cooperative, healthy appearing and no acute distress Orientation/consciousness: patient oriented x3 Resp Effort & Inspection: normal respiratory effort and able to speak in complete sentences Cardio Rate: regular rate Peripheral pulses: Peripheral pulses 2+ throughout GI Palpation (GI): Soft to palpation Skin Lesions: no lesions Rashes: no rashes Neuro General: patient oriented x3 Extrem Other: Neuro: Median, Ulnar, Radial nerves motor and sensory intact and sensation is normal to the tips of all digits Vascular: Cap refill brisk ROM: Can bring fingers closed to a fist and back out to full extension. She can oppose her thumb to all fingers. She is most TTP over the right thumb Basal joint + Shoulder sign + CMC grind No tenderness over the MCP joint Mildly tender over the 1st Dorsal compartment, but no swelling Psych Appearance: grossly normal Affect: normal affect Attitude: cooperative Assessment & Plan Assessment & Plan (1) Arthritis of carpometacarpal (CMC) joint of right thumb: Code(s): M18.11 - Unilateral primary osteoarthritis of first carpometacarpal joint, right hand (2) Tendinitis of finger of right hand: Code(s): M77.8 - Other enthesopathies, not elsewhere classified Plan Ms. Mcgraw is a 63-year-old female who presents in the office today for a follow up of right thumb pain. The patient was last in the office on 09/25/[address] Patel. She is here today to discuss her return to work status. While in the office today the patient reports her last injection gave her a few days of relief. She is interested in discussing other options for pain relief. Today?s appointment was to discuss the patients work status. Unfortunately, the patient reports she only had about 2 days of relief from her last injection. She report she has been resting since being out of work (09/25/2023) and she noticed no improvement of her symptoms. The patient wished to discuss surgical intervention, which I did briefly discussed the procedure with her. I did discuss the case with Dr. Patel who was available but not available to meet with the patient today. After the discussion with Dr. Patel, we decided that it would be best if the patient would be seen by Dr. Patel in two months for a preoperative appointment to discuss right thumb CMC joint arthroplasty. The patient is requesting FMLA paperwork to be filled out at this time. I did discuss this with Dr. Patel, who felt as though the patient could return to work with light duty restrictions. We agreed that FMLA for three months paid leave would be more beneficially used after the procedure has been performed. She was given a note stating she may return to work on light duty with no restrictions of no repetitive motions, heavy gripping, or pinching. These restrictions will remain in place until her follow up with Dr. Patel and should her work not be able to accommodate those restrictions, then it is their responsibility to keep her out of work. The patient understands that surgical intervention would not be able to be performed until she is 3 months status post cortisone injection. Follow up will be in [address] Patel to discuss possible surgical intervention, or sooner if needed. Patient Instructions: Scribed for Ewa Hearn PA-C by Marce Swan medical language specialist, on 10/16/2023 at 2:33 pm, EST. Coding Level of Care Code Est Pt Level 4 (23507) Diagnoses Arthritis of carpometacarpal (CMC) joint of right thumb M18.11 Tendinitis of finger of right hand M77.8
== END 2023-10-16 15:10 | disposition home or self-care (01) ==
PROVIDERS: PCP Internal Medicine; Visit Provider Physician Assistant
DX: M18.11 Unilateral primary osteoarthritis of first carpometacarpal joint, right hand (principal); M77.8 Other enthesopathies, not elsewhere classified
CPT/HCPCS: 99214

== ENCOUNTER → 2023-10-16 14:19 | Outpatient (BNVA) | payer OTHER, SELFPAY | PROVIDERS: PCP Internal Medicine; Visit Provider Physician Assistant | DX: M18.11 Unilateral primary osteoarthritis of first carpometacarpal joint, right hand (principal); M77.8 Other enthesopathies, not elsewhere classified | CPT/HCPCS: 99212 ==

== ENCOUNTER 2023-10-31 08:04 | Outpatient (REF) | payer OTHER, SELFPAY ==
--- NOTE | ~2023-10-31 | US_ITS ---
EXAMINATION: US ABDOMEN LIMITED CLINICAL INFORMATION: Transaminitis. COMPARISON: Ultrasound abdomen complete 04/14/2022. TECHNIQUE: Real-time imaging of the right upper quadrant abdominal viscera. Limited visualization due to bowel gas. FINDINGS: PANCREAS: Limited visualization of pancreatic tail and head. Imaged portion of pancreatic body is unremarkable. LIVER: Increased hepatic parenchymal heterogeneity and echogenicity could be associated with hepatocellular disease/hepatic steatosis and substantially limits visualization. Correlation with liver function tests and clinical exam recommended to determine further management. GALLBLADDER: Tiny 1-2 mm possible gallbladder polyp. Previous exam demonstrated a 3.5 mm polyp. No gallbladder wall thickening. COMMON BILE DUCT: Normal in caliber measuring 0.3 cm in diameter. RIGHT KIDNEY: No hydronephrosis. No renal calculi. Limited visualization. The kidney measures 11.2 cm in maximum dimension. FREE FLUID: None. US/US abdomen limited IMPRESSION: 1. Increased hepatic parenchymal heterogeneity and echogenicity could be associated with hepatocellular disease/hepatic steatosis and substantially limits visualization. Correlation with liver function tests and clinical exam recommended to determine further management. 2. Tiny 1-2 mm possible gallbladder polyp. Previous exam demonstrated a 3.5 mm polyp.
== END 2023-10-31 08:05 | disposition home or self-care (01) ==
LOC: HO.US 08:04
PROVIDERS: PCP Internal Medicine; Visit Provider Internal Medicine
DX: R74.01 Elevation of levels of liver transaminase levels (principal)
CPT/HCPCS: 76705

== ENCOUNTER 2023-11-20 08:09 | Outpatient (REF) | payer OTHER, SELFPAY ==
[2023-11-20 16:19] LABS: Alanine Aminotransferase 32 U/L (0-31); Albumin Level 4.3 g/dL (3.5-5.0); Alkaline Phosphatase 86 U/L (39-117); Anion Gap 17 (12-20); Aspartate Amino Transferase 43 U/L (5-31); Bilirubin Total 0.4 mg/dL (0.0-1.0); Blood Urea Nitrogen 10 mg/dL (9-16); Calcium 9.3 mg/dL (8.4-10.2); Carbon Dioxide 21 mmol/L (22-29); Chloride 110 mmol/L (96-108); Estimated Glomerular Filt Rate > 60; Glucose Random 57 mg/dL (60-115); Potassium 3.5 mmol/L (3.3-5.1); Sodium 144 mmol/L (135-145)
== END 2023-11-20 08:10 | disposition home or self-care (01) ==
LOC: HO.CHCLDS 08:09
PROVIDERS: Visit Provider Internal Medicine
DX: R74.01 Elevation of levels of liver transaminase levels (principal)
CPT/HCPCS: 36415; 80053

== ENCOUNTER 2023-12-18 08:49 | Outpatient (AMB) | payer OTHER, SELFPAY ==
[2023-12-18 09:01] VITALS: BMI 18.7
--- NOTE | 2023-12-18 09:01 | A.OFFVIS_ITS ---
Intake Vital Signs 12/18/23 09:01 Height 5 ft 8 in Weight 123 lb BMI 18.7 Intake Visit Reasons: O/V Rt Thumb CMC s/p injection 09/25/23 Intake Note: Maisha 63 yr old female presents today for her follow up visit for her right thumb CMC s/p injection 09/25/23. States last injection did not help and would like to discuss surgical intervention. Allergies acetaminophen [From Vicodin] Allergy (Intermediate, Verified 12/18/23 09:02) Rash hydrocodone [From Vicodin] Allergy (Intermediate, Verified 12/18/23 09:02) Rash HPI O/V Rt Thumb CMC s/p injection 09/25/23 HPI Details Maisha is a 63 year old right hand dominant woman who returns to discuss surgery for her right basal joint arthritis. She was last injected on 09/25/23, and she says this gave her only a few days of relief and is ready to discuss alternative treatments. She complains of worsening pain in her right thumb, particularly with pinching & gripping activities. She says her hand is often swollen and limits her daily activities due to her pain. 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 She says she has not been working in the last few months, at least since her last injection. She says she has been using her sick leave and vacation time to remain out of work. She is seen today with her partner. She occasionally takes edibles at night to help her sleep. She would like to talk about surgery. [facility] Medical History Fatty liver Chronic UTI (urinary tract infection) Recurrent UTI Surgical History Hx of tubal ligation Hx of section Hx of appendectomy Family History (Updated 08/31/23 @ 09:27 by Aleisha Warren CNM) Mother Dementia Father Leukemia Brother Leukemia HTN (hypertension) Social History Household Members: Significant Other Housing: Apartment Alcohol intake: current Alcohol intake frequency: 0-2 drinks per day Alcohol type: hard liquor Patient Tobacco Use Status: Former Tobacco user Tobacco use type: Cigarette Years Smoked: 10 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al status: employed 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: [employer] provision / rt hand Sexual orientation: Straight/Heterosexual Gender identity: Female Physical Exam Vital Signs: BMI result Body Mass Index 18.7 Const General: no acute distress and alert Orientation/consciousness: patient oriented x3 Neuro General: patient oriented x3 Extrem Other: Evaluation of Right Upper Extremity: The patient is alert, oriented, and in no acute distress Neuro: Median, Ulnar, Radial nerves motor and sensory intact and sensation is normal to the tips of all digits Vascular: Cap refill brisk ROM: Can bring fingers closed to a fist and back out to full extension. She can oppose her thumb to all fingers. She is most TTP over the right thumb Basal joint + Shoulder sign + CMC grind No tenderness over the MCP joint or A1 lala No tenderness over the 1st Dorsal compartment Radiographs: 3 views of the right hand were taken and viewed by me today in clinic. She has some Basal joint osteoarthritis with joint space narrowing, subchondral sclerosis and osteophyte formation. Psych Appearance: grossly normal Affect: normal affect Attitude: cooperative Assessment & Plan Assessment & Plan (1) Arthritis of carpometacarpal (CMC) joint of right thumb: Code(s): M18.11 - Unilateral primary osteoarthritis of first carpometacarpal joint, right hand (2) Tendinitis of finger of right hand: Code(s): M77.8 - Other enthesopathies, not elsewhere classified (3) Osteoarthritis of carpometacarpal (CMC) joint of left thumb: Code(s): M18.12 - Unilateral primary osteoarthritis of first carpometacarpal joint, left hand Plan Assessment & Plan: 1. Right Basal joint arthritis Date of injections: 09/25/23, 02/14/23, 09/26/22 I educated her about this condition. We discussed operative and non operative treatment options. She found little relief from her most recent injection, and would like to proceed with surgery. I did explain to her that after surgery, when she would be in the postoperative period and would not be allowed to do any pinching or gripping against the thumb for 3 months, that this would be a time when that FMLA paid leave would typically be appropriate. The risks and benefits of operative treatment were discussed with the patient and the patient wishes to proceed with surgery. These risks include, but are not limited to risk of damage to blood vessels, nerves, tendons, infection, recurrence, incomplete relief of preoperative symptoms, persistent pain, possible need for further surgery and the risks associated with regional blocks and anesthesia. The plan is to take the patient to the operating room sometime in the next few weeks for the following procedures: 1. Right basal joint arthroplasty with hemitrapeziectomy and LRTI, under general All of the preoperative paperwork including the consent was reviewed today. All the patient's questions were answered. The patient understands that they will be contacted by our oral and maxillofacial surgery resident soon to schedule this procedure She denies Diabetes, blood thinners, asthma, lung, kidney issues She reports having a bend in her heart valve but denies taking any heart medication or following with a Gage Designer. She says that she has not been seen for this heart valve issue for more than 29 years, or since she left [place]. She will need cardiac clearance prior to surgery She is concerned she may have liver cirrhosis, though is diagnoses as having fatty liver disease. She is scheduled to be seen for this soon. 2. Left basal joint arthritis 3. Tendinitis involving the right 2nd MCP joint extensors Date of injections: 02/14/23, 09/26/22 No complaints today Please note that greater than 30 minutes was spent with this patient going over the history, evaluating the patient and radiographs, formulating possible treatment options, discussing them with the patient, and documenting the visit. Scribed for Meche Patel MD by Delgado Quiroga, medical clerical assistant, on 12/18/23 at 9:20 AM, EST. Orders: Orders XR hand RT min 3V Today M79.641 - Pain in right hand Coding Level of Care Code Est Pt Level 4 (40562) Diagnoses Arthritis of carpometacarpal (CMC) joint of right thumb M18.11 Tendinitis of finger of right hand M77.8 Osteoarthritis of carpometacarpal (CMC) joint of left thumb M18.12
== END 2023-12-18 10:08 | disposition home or self-care (01) ==
PROVIDERS: PCP Internal Medicine; Visit Provider Orthopaedic Surgery
DX: M18.0 Bilateral primary osteoarthritis of first carpometacarpal joints (principal); M77.8 Other enthesopathies, not elsewhere classified
CPT/HCPCS: 99214

== ENCOUNTER 2023-12-18 08:49 | Outpatient (REF) | payer OTHER, SELFPAY ==
--- NOTE | ~2023-12-18 | XR_ITS ---
EXAMINATION: XR HAND, RIGHT CLINICAL INFORMATION: Right hand pain, attention basal joint of the thumb COMPARISON: 09/26/2022 TECHNIQUE: PA, lateral, and oblique views of the right hand. FINDINGS: Degenerative change and mild soft tissue prominence at the first carpometacarpal joint does not appear appreciably changed. Other joint spaces are maintained. No fracture. XR/XR hand RT min 3V IMPRESSION: Redemonstration osteoarthritic changes first carpometacarpal joint.
== END 2023-12-18 08:50 | disposition home or self-care (01) ==
LOC: HO.HOSX 08:49
PROVIDERS: PCP Internal Medicine; Visit Provider Orthopaedic Surgery
DX: M18.11 Unilateral primary osteoarthritis of first carpometacarpal joint, right hand (principal); M18.12 Unilateral primary osteoarthritis of first carpometacarpal joint, left hand; M77.8 Other enthesopathies, not elsewhere classified
CPT/HCPCS: 73130; 99212

== ENCOUNTER 2023-12-20 09:06 | Outpatient (AMB) | payer OTHER, SELFPAY ==
[2023-12-20 09:21] VITALS: BP 138/90; PULSE 68; BMI 19.4
--- NOTE | 2023-12-20 09:21 | A.OFFVIS_ITS ---
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 Apparently, she was seen in [place] around 29 years ago and told to have ' bend in heart valve'. She cannot recall if she had an echocardiogram or in fact any information at all. She cannot recall if she had any symptoms at that time either. Not clear if she is describing mitral valve prolapse. Otherwise, she does not have any known history of coronary disease, myocardial infarction or cardiomyopathy or in fact any other cardiac issues. She denies any exertional angina or shortness of breath or in fact any cardiac symptoms at all. Unlimited exercise tolerance. [facility] Medical History Fatty liver Chronic UTI (urinary tract infection) Recurrent UTI Surgical History Hx of tubal ligation Hx of section Hx of appendectomy Family History Mother Dementia Father Leukemia Brother Leukemia HTN (hypertension) Social History Household Members: Significant Other Housing: Apartment Alcohol intake: current Alcohol intake frequency: 0-2 drinks per day Alcohol type: hard liquor Patient Tobacco Use Status: Former Tobacco user Tobacco use type: Cigarette Years Smoked: 10 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al status: employed 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: [employer] / rt hand Sexual orientation: Straight/Heterosexual Gender identity: Female Review of Systems Const All systems reviewed & are unremarkable except as noted in HPI and below Reports as per HPI and Reports no additional complaints Eyes Reports as per HPI and Denies no additional complaints ENT Denies no additional complaints and Reports as per HPI Card Reports as per HPI, Reports no additional complaints, Denies acrocyanosis, Denies chest pain, Denies leg edema, Denies lightheadedness, Denies palpitations and Denies dyspnea Resp Reports as per HPI, Denies no additional complaints and Denies dyspnea GI Reports as per HPI and Denies no additional complaints Reports as per HPI Musc Reports no additional complaints and Reports as per HPI Skin/Breast Reports system reviewed and no additional complaints, except as documented Neuro Reports no additional complaints and Reports as per HPI Psych Reports no additional complaints and Reports as per HPI Endo Reports no additional complaints, Reports as per HPI and Denies palpitations Julio/Lymph Reports no additional complaints and Reports as per HPI Aller/Immun Reports no additional complaints and Reports as per HPI Physical Exam Vital Signs: Last Vital Signs Pulse 68 12/20/23 09:21 BP 138/90 H 12/20/23 09:21 BMI result Body Mass Index 19.4 Const General: comfortable and no acute distress Orientation/consciousness: patient oriented x3 HEENT Other: Unremarkable Head: Yes normal to inspection Neck Neck: Yes normal visual inspection Chest Chest palpation & inspection: normal inspection of the chest Resp Auscultation: clear to auscultation bilaterally Cardio Palpation: normal PMI Heart sounds: S1 normal heart sound present, S2 normal heart sound present, no gallops, no murmurs and no rubs GI Palpation (GI): Soft to palpation Back/Spine/Pelvis Other: unremarkable Skin General skin exam: no rashes or lesions noted Neuro General: patient oriented x3 Extrem General: Yes normal to inspection Psych Mental Status: mental status grossly normal Office Procedures EKG Details: EKG with sinus rhythm at 68/Min; no significant ST-T changes and otherwise [place]remark[place] [id number], Complete Assessment & Plan Assessment & Plan (1) Preoperative cardiovascular examination: Code(s): Z01.810 - Encounter for preprocedural cardiovascular examination (2) Valvular heart disease: Code(s): I38 - Endocarditis, valve unspecified Plan Patient describes history of possible heart valve issue; ? Mitral valve prolapse based on her description of 'bend in heart valve'. Can get an echocardiogram for further assessment. No obvious click or murmur on exam. Should be able to proceed with planned surgery unless any unexpected findings on the echocardiogram. Orders: Orders CA echo transthoracic complete Today I38 - Endocarditis, valve unspecified Coding Level of Care Code New Pt Level 3 (14849) Diagnoses Preoperative cardiovascular examination Z01.810 Valvular heart disease I38 CPT Codes EKG - CPT: 33411-[id number], Complete ([id number])
== END 2023-12-20 09:38 | disposition home or self-care (01) ==
PROVIDERS: PCP Internal Medicine; Visit Provider Internal Medicine
DX: Z01.810 Encounter for preprocedural cardiovascular examination (principal); I38 Endocarditis, valve unspecified
CPT/HCPCS: 93010; 99203

== ENCOUNTER → 2023-12-20 09:06 | Outpatient (BNVA) | payer OTHER, SELFPAY | PROVIDERS: PCP Internal Medicine; Visit Provider Internal Medicine | DX: Z01.810 Encounter for preprocedural cardiovascular examination (principal); I38 Endocarditis, valve unspecified | CPT/HCPCS: 93005; 99202 ==

== ENCOUNTER → 2024-01-04 13:30 | Outpatient (REF) | payer OTHER, SELFPAY ==
--- NOTE | 2024-01-04 13:34 | CA_ITS ---
Transthoracic Echocardiogram Patient (Last, First, Middle): Maisha Mcgraw, Gender: Female Date of : 1960 Age: 63 Procedure Date: 01/04/2024 Procedure Type: Transthoracic Echocardiogram Location: OP Height: 172.72 cm Weight: 57.61 kg BSA: 1.69 m2 Heart Rate: bpm BP: 110 / 80 mmHg Cdl Driver: TO Referring MD: Raudel Samayoa MD Symptoms: I38 - Endocarditis, valve unspecified Study Quality: Fair ECG Rhythm: Sinus Conclusions: - The left ventricular systolic function is hyperdynamic. The calculated ejection fraction is 71% by biplane method. - No obvious valvular pathology seen on this study. Findings Procedure Information The study quality is limited by the patients inability to tolerate the test. Left Ventricle Normal left ventricular cavity size. There is normal left ventricular wall thickness. The left ventricular systolic function is hyperdynamic. The calculated ejection fraction is 71% by biplane method. There is no evidence of regional wall motion abnormalities. Diastolic function is normal for age. LV peak GLS -21.2%. Right Ventricle Normal right ventricular cavity size and systolic function. Atria Both atria are normal in size. Aortic Valve There is a normal trileaflet aortic valve. There is no aortic valve stenosis. There is no aortic valve regurgitation. Mitral Valve The mitral valve appears normal. There is no mitral valve regurgitation. There is no mitral valve stenosis. Pulmonic Valve The pulmonic valve is likely normal. Tricuspid Valve There is trace tricuspid valve regurgitation. There is no evidence of pulmonary hypertension. Great Vessels The asc aorta is normal in size. Venous The inferior vena cava is normal in size and collapses greater than 50% with inspiration. Pericardium/Pleural There is no evidence of pericardial effusion. Prior Study Comparison No prior study available for comparison. Recommendations, Care & Conclusions No obvious valvular pathology seen on this study. Measurements 2D Linear Measurements IVSd: 0.80 0.6-0.9/0.6-1.0 cm LVIDd: 3.93 3.9-5.3/4.2-5.9 cm LVIDd Index: 2.33 2.4-3.2/2.2-3.1 cm/m2 LVIDs: 2.25 2.0-3.6 cm LVPWd: 0.71 0.7-1.1 cm LA Diam: 2.80 2.7-3.8/3.0-4.0 cm LAIDs Index: 1.66 1.5-2.3 cm/m2 LV Mass: 103.75 67-162/88-224 g LV Mass Index: 61.39 43-95/49-115 g/m2 LVOT Diam: 2.00 3.0+(-)1.3 cm 2D Systolic Function EF 4C: 71.10 >55% EF 2C: 71.10 >55% EF BiP: 71.40 >55% Mitral Valve MV Pk E: 0.58 MV PK A: 0.52 MV Decel Time: 198.00 E/A: 1.10 E'Lateral: 9.57 E'Medial: 5.44 E/E' Med: 10.70 E/E' Lat: 6.10 PHT: 58.00 MVA PHT: 3.79 Decel Summit: 2.94 Aortic Valve AoV Pk Johnnie: 1.41 AoV Mn Johnnie: 0.86 AoV VTI: 0.30 AoV Pk Grad: 8.00 Aov Mn Grad: 4.00 GERHARD Cont.VTI: 2.73 LVOT LVOT Pk Johnnie: 1.22 LVOT Mn Johnnie: 0.79 LVOT VTI: 0.26 LVOT Pk Grad: 6.00 LVOT Mn Grad: 3.00 LVOT Diam: 2.00 LVOT Area: 3.14 Diastolic Function MV Pk E: 0.58 MV Pk A: 0.52 E/A: 1.10 E'Medial: 5.44 E/E' Med: 10.70 E' Laterial: 9.57 E/E' Lat: 6.10 Right Ventricle TAPSE (mm): 23.20 TVS' Johnnie: 12.80 Tricuspid Valve RA Press: 3.00 Great Vessels Aorta Sinus of Valsalva: 3.17 2.0-3.[address] Ridge: 2.28 1.7-3.4 cm Ao Asc: 3.10 2.1-3.4 cm Updated in Other Vendor System with Status of Final Raudel Samayoa MD electronically signed on 01/05/2024 2:48:38 PM with status of Final
== END ==
LOC: HO.CARD 13:30
PROVIDERS: PCP Internal Medicine; Visit Provider Internal Medicine
DX: I38 Endocarditis, valve unspecified (principal)
CPT/HCPCS: 93306; 93356

== ENCOUNTER → 2024-01-04 13:34 | Outpatient (BNV) | payer OTHER, SELFPAY | PROVIDERS: PCP Internal Medicine; Visit Provider Internal Medicine | DX: I38 Endocarditis, valve unspecified (principal) | CPT/HCPCS: 93306; 93356 ==

== ENCOUNTER 2024-02-19 08:55 | Outpatient (AMB) | payer OTHER, SELFPAY ==
--- NOTE | 2024-02-19 08:59 | MHC.OFFVIS ---
Vital Signs 02/19/24 09:00 Height 5 ft 8 in Weight 127 lb BMI 19.3 Intake Visit Reasons: Pre- Rt Thumb LRTI 02/25/24 Intake Note: Maisha 63 yr old female presents today for her Pre-op visit for her right Thumb basal joint O.A, scheduled for 02/25/[address] Patel. Consent has been reviewed and signed. All question has valery answered. Allergies hydrocodone [From Vicodin] Allergy (Intermediate, Verified 02/19/24 09:01) Rash HPI HPI Pre- Rt Thumb LRTI 02/25/24: Details: Maisha is a 63 year old right hand dominant woman who returns to discuss her right basal joint arthritis. She was last injected on 09/25/23, and she says this gave her only a few days of relief and is ready to discuss alternative treatments. She denies any changes in her symptoms or medical history, and has received cardiac clearance for surgery. She is planning to move into a mobile home at the end of the month. She says she has people ready to go to do all the lifting and moving for her while she is resting. She is not planning on doing any lifting or other physical activities. 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 She says she has not been working in the last few months, at least since her last injection. She says she has been using her sick leave and vacation time to remain out of work. She had questions about her [place] paperwork. She occasionally takes edibles at night to help her sleep. [facility] Medical History (Updated 02/15/24 @ 09:34 by Mariluz Mendoza RN) Elevated LFTs Arthritis Insomnia Fatty liver Chronic UTI (urinary tract infection) Recurrent UTI Surgical History Hx of tubal ligation Hx of section Hx of appendectomy Family History Mother Dementia Father Leukemia Brother Leukemia HTN (hypertension) Social History Household Members: Significant Other Caregiver staying overnight: No Housing: Apartment Are you a primary laboratory animal care veterinarian to a significant other at home: No Do you presently have visiting nurse or other home services: No 75 years or older and lives alone: No Alcohol intake: current Alcohol intake frequency: 0-2 drinks per day Alcohol type: hard liquor Patient Tobacco Use Status: Former Tobacco user Tobacco use type: Cigarette Years Smoked: 10 Smoked in Last 30 Days: No 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al status: employed 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: [employer] provision / rt hand Sexual orientation: Straight/Heterosexual Gender identity: Female Physical Exam Vital Signs: BMI result Body Mass Index 19.3 Const General: no acute distress and alert Orientation/consciousness: patient oriented x3 Neuro General: patient oriented x3 Extrem Other: Evaluation of Right Upper Extremity: The patient is alert, oriented, and in no acute distress Neuro: Median, Ulnar, Radial nerves motor and sensory intact and sensation is normal to the tips of all digits Vascular: Cap refill brisk ROM: Can bring fingers closed to a fist and back out to full extension. She can oppose her thumb to all fingers. She is most TTP over the right thumb Basal joint + Shoulder sign + CMC grind No tenderness over the MCP joint or A1 lala No tenderness over the 1st Dorsal compartment Psych Appearance: grossly normal Affect: normal affect Attitude: cooperative Assessment & Plan Assessment & Plan (1) Arthritis of carpometacarpal (CMC) joint of right thumb: Code(s): M18.11 - Unilateral primary osteoarthritis of first carpometacarpal joint, right hand Category: Medical (2) Tendinitis of finger of right hand: Code(s): M77.8 - Other enthesopathies, not elsewhere classified Category: Medical (3) Osteoarthritis of carpometacarpal (CMC) joint of left thumb: Code(s): M18.12 - Unilateral primary osteoarthritis of first carpometacarpal joint, left hand Category: Medical Plan Assessment & Plan: 1. Right Basal joint arthritis Date of injections: 09/25/23, 02/14/23, 09/26/22 I educated her about this condition. We discussed operative and non operative treatment options. She found little relief from her most recent injection, and would like to proceed with surgery. I did explain to her that after surgery, when she would be in the postoperative period and would not be allowed to do any pinching or gripping against the thumb for 3 months, that this would be a time when that FMLA paid leave would typically be appropriate. The risks and benefits of operative treatment were discussed with the patient and the patient wishes to proceed with surgery. These risks include, but are not limited to risk of damage to blood vessels, nerves, tendons, infection, recurrence, incomplete relief of preoperative symptoms, persistent pain, possible need for further surgery and the risks associated with regional blocks and anesthesia. The plan is to take the patient to the operating room sometime on 02/25/24 for the following procedures: 1. Right basal joint arthroplasty with hemitrapeziectomy and LRTI, under general All of the preoperative paperwork including the consent was reviewed today. All the patient's questions were answered. At her first post-op appointment, she will need a same day appointment with OT following to have a custom thermoplastic splint made for her She denies Diabetes, blood thinners, asthma, lung, kidney issues She reports having a bend in her heart valve but denies taking any heart medication or following with a Child Welfare Manager. She says that she has not been seen for this heart valve issue for more than 29 years, or since she left [place]. She has received cardiac clearance prior to surgery She is concerned she may have liver cirrhosis, though is diagnoses as having fatty liver disease. She is scheduled to be seen for this soon. 2. Left basal joint arthritis 3. Tendinitis involving the right 2nd MCP joint extensors Date of injections: 02/14/23, 09/26/22 No complaints today Scribed for Meche Patel MD by Delgado Quiroga, biomedical engineering technologist, on 02/19/24 at 9:20 AM, EST. Coding Level of Care Code Est Pt Level 4 (78351) Diagnoses Arthritis of carpometacarpal (CMC) joint of right thumb M18.11 Tendinitis of finger of right hand M77.8 Osteoarthritis of carpometacarpal (CMC) joint of left thumb M18.12
[2024-02-19 09:00] VITALS: BMI 19.3
== END 2024-02-19 10:20 | disposition home or self-care (01) ==
PROVIDERS: PCP Internal Medicine; Visit Provider Orthopaedic Surgery
DX: M18.0 Bilateral primary osteoarthritis of first carpometacarpal joints (principal); M77.8 Other enthesopathies, not elsewhere classified
CPT/HCPCS: 99024

== ENCOUNTER → 2024-02-19 08:55 | Outpatient (BNVA) | payer OTHER, SELFPAY | PROVIDERS: PCP Internal Medicine; Visit Provider Orthopaedic Surgery | DX: M18.0 Bilateral primary osteoarthritis of first carpometacarpal joints (principal); M77.8 Other enthesopathies, not elsewhere classified | CPT/HCPCS: 99212 ==

== ENCOUNTER 2024-02-25 05:41 | Day surgery (SDC) | payer OTHER, SELFPAY ==
[2024-02-15 09:36] VITALS: BMI 19.2
--- NOTE | 2024-02-21 13:46 | P.CONAN_ITS ---
Documented by User: Anjelica Zuñiga NP 02/21/24 13:48 HPI - Anesthesia Eval Consult details Narrative: 63yo F for Right Thumb 1st finger Arthroplasty with hemitrapeziectomy basal joint,with ligament reconstruction with tendon Interpostion Cardiac optimized (seen as new pt to [facility] for vague hx of valve ds. Echo WNL, no concerning cv symptoms) PMFSH Active Problems Active Problems: All Active Problems Preoperative cardiovascular examination (Acute) Valvular heart disease (Acute) Osteoarthritis of carpometacarpal (CMC) joint of left thumb (Acute) Tendinitis of finger of right hand (Acute) Arthritis of carpometacarpal (CMC) joint of right thumb (Acute) Chronic UTI (urinary tract infection) (Acute) Past Medical History Medical History Elevated LFTs Arthritis Insomnia Fatty liver Chronic UTI (urinary tract infection) Recurrent UTI Family History Family History Mother Dementia Father Leukemia Brother Leukemia HTN (hypertension) Surgical History Surgical History Hx of tubal ligation Hx of section Hx of appendectomy Social History Social History Household Members: Significant Other Housing: Apartment Are you a primary dialysis patient care technician to a significant other at home: No Do you presently have visiting nurse or other home services: No Alcohol intake: current Alcohol intake frequency: 0-2 drinks per day Alcohol type: hard liquor Patient Tobacco Use Status: Former Tobacco user Tobacco use type: Cigarette Years Smoked: 10 Use of substances other than those prescribed or required for medical reasons: No Have you been hit, kicked, punched, or otherwise hurt by someone within the past year? 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: [employer] / rt hand Sexual orientation: Straight/Heterosexual Gender identity: Female Meds Allergies Allergy/AdvReac Type Severity Reaction Status Date / Time hydrocodone [From Vicodin] Allergy Intermediate Rash Verified 02/19/24 09:01 Home Medications ?Medication ?Instructions ?Recorded ?Confirmed ?Last Taken ?Type alendronate 70 mg tablet 70 mg PO QWEEK 05/12/22 02/15/24 Unknown History losartan 50 mg tablet 50 mg PO QAM 02/15/24 02/15/24 Unknown History Exam Height,Weight and Vital Signs: Height 5 ft 8 in Weight 57.153 kg Pertinent Lab Results Pertinent Lab Results: Laboratory Tests 10/12/23 11/20/23 09:06 08:16 WBC 8.9 Hgb 15.8 Hct 45.2 Plt Count 225 Sodium 144 Potassium 3.5 D Chloride 110 H Carbon Dioxide 21 L BUN 10 Creatinine 0.70 Narrative Narrative: ECHO 01/2024 Conclusions: - The left ventricular systolic function is hyperdynamic. The calculated ejection fraction is 71% by biplane method. - No obvious valvular pathology seen on this study. EKG 01/2024 sinus rhythm at 68/Min; no significant ST-T changes and otherwise unremarkable. Normal [place] and corrected QT. Assessment and Plan Assessment Anesthesia Assessment: Chart Reviewed Documented by User: Dalia Benton MD 02/25/24 07:44 PMFSH Past Medical History Medical History Elevated LFTs Arthritis Insomnia Fatty liver Chronic UTI (urinary tract infection) Recurrent UTI Family History Family History Mother Dementia Father Leukemia Brother Leukemia HTN (hypertension) Family history of problems with anesthesia: No Surgical History Surgical History Hx of tubal ligation Hx of section Hx of appendectomy History of Problems with Anesthesia: No Social History Social History Household Members: Significant Other Housing: Apartment Are you a primary dialysis patient care technician to a significant other at home: No Do you presently have visiting nurse or other home services: No Alcohol intake: current Alcohol intake frequency: 0-2 drinks per day Alcohol type: hard liquor Patient Tobacco Use Status: Former Tobacco user Tobacco use type: Cigarette Years Smoked: 10 Use of substances other than those prescribed or required for medical reasons: No Have you been hit, kicked, punched, or otherwise hurt by someone within the past year? 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: [employer] / rt hand Sexual orientation: Straight/Heterosexual Gender identity: Female Meds Allergies Allergy/AdvReac Type Severity Reaction Status Date / Time hydrocodone [From Vicodin] Allergy Intermediate Rash Verified 02/19/24 09:01 Home Medications ?Medication ?Instructions ?Recorded ?Confirmed ?Last Taken ?Type alendronate 70 mg tablet 70 mg PO QWEEK 05/12/22 02/15/24 Unknown History losartan 50 mg tablet 50 mg PO QAM 02/15/24 02/15/24 Unknown History Exam Airway Heart: rrr Lungs: cta Assessment and Plan Assessment Anesthesia Assessment: Anesthesia Plan Discussed Final Anesthetic Review Family History of Problems with Anesthesia: No History of Problems with Anesthesia: No NPO: Yes ASA Class: II Final Preanesthetic Review: No Changes in Pt Med Stat, Meds/Allgs Chart Reviewed, Consent Obtained/Reviewed and Anes Risks/Benef Reviewed Patient Risk: Intermediate Procedure Risk: Intermediate Anesthetic Plan Anesthetic Plan: GA and Regional Block Disposition: Standard PACU
[2024-02-25] VITALS (7 sets, daily range): BP systolic 139–158; BP diastolic 63–82; PULSE 71–85; RESP 14–18; TEMP 36.1–36.5; O2SAT 96–100
--- NOTE | ~2024-02-25 | FL_ITS ---
EXAMINATION: XR FLUOROSCOPY WITH IMAGES CLINICAL INFORMATION: Right thumb arthroplasty. COMPARISON: None available. TECHNIQUE: Fluoroscopy Supervised By: Dr. Patel. Fluoroscopy Time: 14.28. Cumulative Dose: 0.4004 mGy. DAP: 0.0242 Gycm2. Images: 3. FINDINGS: Intraoperative fluoroscopy and spot films were performed during a procedure in the OR. 2 pins are seen extending through the first metacarpal. There appears to have been osteotomy of the base of the first metacarpal. Please correlate with Dr. Patel' report for complete details. FL/FL guidance in OR IMPRESSION: Intraoperative fluoroscopy and spot films were obtained. Please see Dr. Patel' report for complete details.
[2024-02-25] MEDS: Lactated Ringers 1,000 ML 100 ML IVCONT (06:17)
--- NOTE | 2024-02-25 07:50 | MHC.SHP ---
Pre-Procedural Eval Section A - 24 Hr Update-Section A only Date of Service: 02/25/24 The patient is an INPATIENT: No Changes since office visit: No Cold of Flu in the past 2 weeks, No New Medical Problems, No Changes in Medication and No Patient answered all questions The patient has been examined within 24 hours of the surgical procedure. The History & Physical has been completed within 30 days and I have reviewed it.: Yes Section B - Complete if H&P > 30 days Chief Complaint: Unilateral primary osteoarthritis of first carpome Allergies: Allergies Allergy/AdvReac Type Severity Reaction Status Date / Time hydrocodone [From Vicodin] Allergy Intermediate Rash Verified 02/19/24 09:01 Plan I have reviewed the history and physical and performed a pertinent physical examination on my patient. No changes have occurred unless specified. Time Spent With Patient Time: Total time managing care of this patient today ____ minutes.
--- NOTE | 2024-02-25 07:51 | W.PM.OPN ---
Operative Note Operative Note Date of Service: 02/25/24 Narrative: Operative Note Narrative: Preop diagnosis: 1. Right basal joint osteoarthritis Postop diagnosis: Same Procedure: 1. Right basal joint arthroplasty with cesia trapezii ectomy and ligament reconstruction tendon interposition with a slip of APL tendon Surgeon: Meche Patel MD Anesthesia: General Anesthesia plus regional block Findings: Basal joint arthritis Implants: 0.045 K-wires x2 Tourniquet time: 77 minutes EBL: 5.0 ml Specimen: None Drains: None Complications: None Disposition: Brought to the recovery room in stable condition Plan: Follow-up in 10-14 days for wound check, suture removal and to postop radiographs Place into a short-arm thumb spica cast. Anticipate K-wire removal at 4 weeks postop with same-day appointment for OT hand therapy for a custom thermoplastic hand based thumb spica splint and hand therapy Indications: The patient is 63 years old with right basal joint osteoarthritis. The risks and benefits of operative treatment, including but not limited to risk of damage to blood vessels, nerves, tendons, infection, recurrence, persistent pain or numbness, incomplete resolution of preoperative symptoms, or need for further surgery were discussed with the patient and they wished to proceed with surgery. Procedure: Once consent was obtained patient was brought back to the operating suite and placed in the operating table in a supine position. A regional block was performed by the anesthesia team. Perioperative antibiotics and anesthesia were administered by the anesthesia team. A tourniquet was applied to the proximal aspect of the right upper extremity and the limb was prepped and draped in a standard surgical fashion. The limb was elevated exsanguinated with Esmarch bandage and the tourniquet inflated to 250 mm of mercury for a total tourniquet time of 77 minutes. A 4 cm longitudinal incision was made over the dorsal aspect of the basal joint of the left thumb extending proximally over the 1st dorsal compartment. The incision was made through the skin to the subcutaneous tissues using a 15. Blade. I dissected down to the level of the abductor pollicis longus and extensor problems this brevis tendons with care being taken to protect the branches of the superficial radial nerve. The basal joint was entered through the interval between the APL and EPB tendons, and the base of the 1st metacarpal and the distal aspect of the trapezium were exposed. Two baby Ana retractors were placed around the base of the 1st metacarpal and a bone saw was used to make a transverse cut through the base of the 1st metacarpal removing sliver of bone. The distal aspect of the trapezium was then similarly mobilized, 2 baby Ana retractors placed, and the distal half of the trapezium removed after a transverse cut was made using a small bone saw and a rongeur. The FCR tendon was seen passing through the floor of the interval. At this point my attention was turned to the 1st dorsal compartment. It was exposed over the radial styloid. A slip of the abductor pollicis longus tendon was selected and cut proximally and withdrawn back to the interval and its attachment at the base of the 1st metacarpal. It was then secured to the base of the interval and the FCR tendon using some 3-0 Ethibond suture. An anchovy was then created from the remaining slip of APL tendon and placed into the interval. It was secured using 3-0 Ethibond suture material. Two 0.045 K-wires were then placed from distal to proximal across the interval maintaining the space in the interval. Once satisfied with their position on fluoroscopic images they were cut, bent and had pin caps applied. At this point the wound was again irrigated with normal saline. The interval was closed using 3-0 Ethibond and 4-0 Vicryl suture. The tourniquet was then deflated and hemostasis obtained with a brief period of local pressure and bipolar electrocautery. The wound was again copiously irrigated with normal saline. The subcutaneous layer was closed with 4-0 Vicryl suture, and the skin edges were reapproximated with 5-0 Prolene suture. The wound was infiltrated with some 1% lidocaine with epinephrine for postop pain control and a sterile dressing and thumb spica splint were applied. The patient appears to have tolerated the procedure well and with no complications. All digits were well vascularized at the conclusion of the case.
== END 2024-02-25 11:37 | disposition home or self-care (01) ==
PROVIDERS: PCP Internal Medicine; Visit Provider Orthopaedic Surgery
PROC: (CPT 26535; principal; 2024-02-25 07:30)
DX: M18.11 Unilateral primary osteoarthritis of first carpometacarpal joint, right hand (principal)
CPT/HCPCS: 25447; J0131; J0665; J0690; J1100; J2250; J2405; J2704; J2795; J3010

== ENCOUNTER → 2024-02-25 05:41 | Outpatient (BNV) | payer OTHER, SELFPAY | PROVIDERS: PCP Internal Medicine; Visit Provider Orthopaedic Surgery | DX: M18.11 Unilateral primary osteoarthritis of first carpometacarpal joint, right hand (principal) | CPT/HCPCS: 25310; 25447 ==

== ENCOUNTER 2024-03-11 08:38 | Outpatient (AMB) | payer OTHER, SELFPAY ==
--- NOTE | 2024-03-11 08:43 | MHC.OFFVIS ---
Intake Visit Reasons: PO- Rt Thumb LRTI 02/25/24 Intake Note: Maisha 63 yr old female presents today for his PO Right basal joint arthroplasty with hemitrapeziectomy and LRTI 02/25/24. Dressing removed in office. Patient states she is doing well, states intermittent sharp pain at incision area. She has numbness and tingling in her thumb. Allergies hydrocodone [From Vicodin] Allergy (Intermediate, Verified 03/11/24 09:45) Rash HPI HPI PO- Rt Thumb LRTI 02/25/24: Details: Maisha is a 63 year old right hand dominant woman who returns S/P right basal joint arthroplasty with hemitrapeziectomy & LRTI, DOS: 02/25/24. She says she is doing well overall. She has been keeping her pin site clean, dry, and cool in the heat wave by keeping it close to a fan. 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 [facility] Medical History Elevated LFTs Arthritis Insomnia Fatty liver Chronic UTI (urinary tract infection) Recurrent UTI Surgical History Hx of tubal ligation Hx of section Hx of appendectomy Family History Mother Dementia Father Leukemia Brother Leukemia HTN (hypertension) Social History Household Members: Significant Other Caregiver staying overnight: No Housing: Apartment Are you a primary director of healthcare systems to a significant other at home: No Do you presently have visiting nurse or other home services: No 75 years or older and lives alone: No Alcohol intake: current Alcohol intake frequency: 0-2 drinks per day Alcohol type: hard liquor Patient Tobacco Use Status: Former Tobacco user Tobacco use type: Cigarette Years Smoked: 10 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al status: employed 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: [employer] / rt hand Sexual orientation: Straight/Heterosexual Gender identity: Female Review of Systems Const All systems reviewed & are unremarkable except as noted in HPI and below Physical Exam Const General: no acute distress and alert Orientation/consciousness: patient oriented x3 Neuro General: patient oriented x3 Extrem Other: The patient was alert oriented and in no acute distress The pin-sites and incision site are healing well with no erythema drainage or evidence of infection. Sutures removed and Steri-Strips applied With encouragement she can make a fist and extend all of her fingers. Sensation is intact Cap refill is brisk Radiographs: 3 views of the right hand, with attention to the thumb, were taken and viewed by me today in clinic. They show a right basal joint arthroplasty with preserved interspace and satisfactory position of both implants. The more radial K-wire may have backed out a little bit.. Psych Appearance: grossly normal Affect: normal affect Attitude: cooperative Assessment & Plan Assessment & Plan (1) Arthritis of carpometacarpal (CMC) joint of right thumb: Code(s): M18.11 - Unilateral primary osteoarthritis of first carpometacarpal joint, right hand Category: Medical (2) Tendinitis of finger of right hand: Code(s): M77.8 - Other enthesopathies, not elsewhere classified Category: Medical (3) Osteoarthritis of carpometacarpal (CMC) joint of left thumb: Code(s): M18.12 - Unilateral primary osteoarthritis of first carpometacarpal joint, left hand Category: Medical Plan Assessment & Plan: 1. Right Basal joint arthritis, S/P arthroplasty with hemitrapeziectomy and LRTI with a slip of APL tendon, DOS: 02/25/24 The patient appears to be doing well post-operatively I educated her about the post-operative course She was placed in a short arm thumb spica cast, to be worn for at least the next 2 weeks. I explained the signs and symptoms of infection, if the patient develops any new or worsening erythema, drainage, pain, or warmth they should contact the clinic or attend the ED. I discussed activity modifications, she is to lift nothing heavier than a cellphone for the next two weeks & is not be allowed to do any pinching or gripping against the thumb for 3 months, that this would be a time when that [facility] paid leave would typically be appropriate. She should avoid any underwater activities at this time She will follow up in 2 weeks for K-wire removal, she will need a same-day appointment with OT hand therapy for a custom thermoplastic hand based thumb spica splint and to begin hand therapy exercises 2. Left basal joint arthritis 3. Tendinitis involving the right 2nd MCP joint extensors Date of injections: 02/14/23, 09/26/22 No complaints today Scribed for Meche Patel MD by Delgado Quiroga, senior medical technologist, on 03/11/24 at 8:55 AM, EST. Orders: Orders XR hand RT min 3V Today M79.641 - Pain in right hand OT Evaluation and Treatment Today M18.12 - Unilateral primary osteoarthritis of first carpometacarpal joint, left hand Scribe Plan - Not visible on output: Scribed for Meche Patel MD by Delgado Quiroga, senior medical technologist, on [ ] at [ ], EST. Coding Level of Care Code Global (48163) Diagnoses Arthritis of carpometacarpal (CMC) joint of right thumb M18.11 Tendinitis of finger of right hand M77.8 Osteoarthritis of carpometacarpal (CMC) joint of left thumb M18.12
== END 2024-03-11 09:46 | disposition home or self-care (01) ==
PROVIDERS: PCP Internal Medicine; Visit Provider Orthopaedic Surgery
DX: M18.0 Bilateral primary osteoarthritis of first carpometacarpal joints (principal); M77.8 Other enthesopathies, not elsewhere classified
CPT/HCPCS: 99024

== ENCOUNTER 2024-03-11 09:32 | Outpatient (REF) | payer OTHER, SELFPAY ==
--- NOTE | ~2024-03-11 | XR_ITS ---
EXAMINATION: XR HAND, RIGHT CLINICAL INFORMATION: Pain. COMPARISON: Prior radiographs dated 12/22/2023. TECHNIQUE: PA, lateral, and oblique views of the right hand. FINDINGS: There has been a prior arthrodesis of the first carpometacarpal joint, with 4 mm distraction at the arthrodesis site and 2 intact K wires. The proximal and distal carpal rows are intact. This no focal soft tissue swelling, gas or foreign body. XR/XR hand RT min 3V IMPRESSION: An arthrodesis is seen of the right first carpometacarpal joint, with 4 mm gap at the arthrodesis site and 2 intact K wires.
== END 2024-03-11 09:33 | disposition home or self-care (01) ==
LOC: HO.HOSX 09:32
PROVIDERS: Visit Provider Orthopaedic Surgery
DX: M18.11 Unilateral primary osteoarthritis of first carpometacarpal joint, right hand (principal); M18.12 Unilateral primary osteoarthritis of first carpometacarpal joint, left hand; M77.8 Other enthesopathies, not elsewhere classified
CPT/HCPCS: 73130; 99212

== ENCOUNTER 2024-03-25 08:09 | Outpatient (AMB) | payer OTHER, SELFPAY ==
--- NOTE | 2024-03-25 08:28 | A.OFFVIS_ITS ---
Vital Signs 03/25/24 08:40 03/25/24 09:00 Height 5 ft 8 in 5 ft 8 in Weight 127 lb 127 lb BMI 19.3 19.3 Handedness Right Intake Visit Reasons: PO- 2 wk f/u Rt Thumb LRTI 02/25/24 Intake Note: Maisha is a 63 year old right hand dominant female who presents today post operatively s/p Right basal joint arthroplasty with hemitrapeziectomy and LRTI 02/25/24. Patient reports she is doing well, but does feel that she may have overdone it a bit the day after surgery. She moved and tried to avoid lifting boxes but did have to do some mild lifting. She has occasional sharp pain at the base of the thumb. Allergies hydrocodone [From Vicodin] Allergy (Intermediate, Verified 03/25/24 09:02) Rash HPI HPI PO- 2 wk f/u Rt Thumb LRTI 02/25/24: Details: Maisha is a 63 year old right hand dominant woman who returns S/P right basal joint arthroplasty with hemitrapeziectomy & LRTI, DOS: 02/25/24. She says she is doing well overall. She has been keeping her pin site clean, dry, and cool in the heat wave by keeping it close to a fan. She complains of random sharp pains in her thumb, and says this occurs both with activity & when at rest. She says this occurs daily for brief periods of time. She says the day following her surgery she moved, and had to do some mild lifting of boxes. She denies any numbness or tingling. She says her first OT appointment is not until 03/31/24. 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 [facility] Medical History Elevated LFTs Arthritis Insomnia Fatty liver Chronic UTI (urinary tract infection) Recurrent UTI Surgical History Hx of tubal ligation Hx of section Hx of appendectomy Family History Mother Dementia Father Leukemia Brother Leukemia HTN (hypertension) Social History Household Members: Significant Other Caregiver staying overnight: No Housing: Apartment Are you a primary childbirth and infant care teacher to a significant other at home: No Do you presently have visiting nurse or other home services: No 75 years or older and lives alone: No Alcohol intake: current Alcohol intake frequency: 0-2 drinks per day Alcohol type: hard liquor Patient Tobacco Use Status: Former Tobacco user Tobacco use type: Cigarette Years Smoked: 10 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al status: employed 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: [employer] / rt hand Sexual orientation: Straight/Heterosexual Gender identity: Female Review of Systems Const All systems reviewed & are unremarkable except as noted in HPI and below Physical Exam Vital Signs: BMI result Body Mass Index 19.3 Const General: no acute distress and alert Orientation/consciousness: patient oriented x3 Neuro General: patient oriented x3 Extrem Other: The patient was alert oriented and in no acute distress The pin-sites are clean with no erythema drainage or evidence of infection. Her incision site are well-healed with no erythema drainage or evidence of infection. K-wires removed today in clinic, which she tolerated well. With encouragement she can make a fist and extend all of her fingers. Sensation is intact Cap refill is brisk Radiographs: 3 views of the right hand, with attention to the thumb, from 03/11/24 were reviewed by me today in clinic. They show a right basal joint arthroplasty with preserved interspace and satisfactory position of both implants. Psych Appearance: grossly normal Affect: normal affect Attitude: cooperative Assessment & Plan Assessment & Plan (1) Arthritis of carpometacarpal (CMC) joint of right thumb: Code(s): M18.11 - Unilateral primary osteoarthritis of first carpometacarpal joint, right hand Category: Medical (2) Tendinitis of finger of right hand: Code(s): M77.8 - Other enthesopathies, not elsewhere classified Category: Medical (3) Osteoarthritis of carpometacarpal (CMC) joint of left thumb: Code(s): M18.12 - Unilateral primary osteoarthritis of first carpometacarpal joint, left hand Category: Medical Plan Assessment & Plan: 1. Right Basal joint arthritis, S/P arthroplasty with hemitrapeziectomy and LRTI with a slip of APL tendon, DOS: 02/25/24 K-wires removed: 03/25/24 The patient appears to be doing well post-operatively I educated her about the post-operative course She will attend OT hand therapy for a custom thermoplastic hand based thumb spica splint and to begin hand therapy exercises. Her first scheduled appointment is for 03/31/24 and should have been for a same day appointment. AGUSTIN Meier contacted the OT department and got her an appointment to be seen today to have her custom splint made for her. She will wear this splint for the next 2 months. I discussed activity modifications, she is not be allowed to do any pinching or gripping against the thumb for another 2 months, that this would be a time when that [place] paid leave would typically be appropriate. She has been somewhat overusing her hand since her surgery, and had some brief episodes of intermittent sharp pain. She did have to help move some boxes the day after surgery as she was moving to a new home. She was somewhat frustrated by having this restriction repeated to her but expressed understanding. She should avoid any underwater activities for the next 5 days. She will follow up in 4-6 weeks for a ROM check & to see how she is doing. 2. Left basal joint arthritis 3. Tendinitis involving the right 2nd MCP joint extensors Date of injections: 02/14/23, 09/26/22 No complaints today Please note that greater than 30 minutes was spent with this patient going over the history, evaluating the patient and radiographs, formulating possible treatment options, discussing them with the patient, and documenting the visit. Scribed for Meche Patel MD by Delgado Quiroga, medical assisting instructor, on 03/25/24 at 9:00 AM, EST. Coding Level of Care Code Global (79158) Diagnoses Arthritis of carpometacarpal (CMC) joint of right thumb M18.11 Tendinitis of finger of right hand M77.8 Osteoarthritis of carpometacarpal (CMC) joint of left thumb M18.12
[2024-03-25 08:40] VITALS: BMI 19.3
[2024-03-25 09:00] VITALS: BMI 19.3
== END 2024-03-25 09:25 | disposition home or self-care (01) ==
PROVIDERS: PCP Internal Medicine; Visit Provider Orthopaedic Surgery
DX: M18.0 Bilateral primary osteoarthritis of first carpometacarpal joints (principal); M77.8 Other enthesopathies, not elsewhere classified
CPT/HCPCS: 99024

== ENCOUNTER → 2024-03-25 08:09 | Outpatient (BNVA) | payer OTHER, SELFPAY | PROVIDERS: PCP Internal Medicine; Visit Provider Orthopaedic Surgery | DX: Z47.89 Encounter for other orthopedic aftercare (principal); M18.11 Unilateral primary osteoarthritis of first carpometacarpal joint, right hand; M18.12 Unilateral primary osteoarthritis of first carpometacarpal joint, left hand; M77.8 Other enthesopathies, not elsewhere classified | CPT/HCPCS: 99212 ==

== ENCOUNTER 2024-04-22 13:21 | Outpatient (AMB) | payer OTHER, SELFPAY ==
--- NOTE | 2024-04-22 13:47 | A.OFFVIS_ITS ---
Vital Signs 04/22/24 13:49 Height 5 ft 8 in Intake Visit Reasons: PO- 4 wk f/u Rt Thumb LRTI 02/25/24 Intake Note: Maisha is a 63 year old right hand dominant female who presents today post operatively s/p Right basal joint arthroplasty with hemitrapeziectomy and LRTI 02/25/24. Patient reports that she is doing well, she has some mild pain and on/off numbness of the thumb. She feels that she is improving and has been worki ng on exercises at home. Allergies hydrocodone [From Vicodin] Allergy (Intermediate, Verified 03/25/24 09:02) Rash HPI HPI PO- 4 wk f/u Rt Thumb LRTI 02/25/24: Details: Patient is a 63-year-old female who presents for postoperative evaluation status post cesia trapeziectomy of right thumb, DOS 02/25/2024. Today, the patient reports that she is feeling well, and that the range of motion of her right thumb has improved significantly over the last month. She reports that she continues to wear the thermal molded thumb spica brace provided to her by occupational therapy, but states that while she has been mostly compliant with the no thumb opposition restrictions placed on her, she did do some forceful gripping of a knife to cut vegetables this morning, but she reported that this did not cause her any discomfort. Patient denies any numbness or tingling in the right thumb. No other acute complaints or concerns at this time. [facility] Medical History Elevated LFTs Arthritis Insomnia Fatty liver Chronic UTI (urinary tract infection) Recurrent UTI Surgical History Hx of tubal ligation Hx of section Hx of appendectomy Family History Mother Dementia Father Leukemia Brother Leukemia HTN (hypertension) Social History Household Members: Significant Other Caregiver staying overnight: No Housing: Apartment Are you a primary customer care specialist to a significant other at home: No Do you presently have visiting nurse or other home services: No 75 years or older and lives alone: No Alcohol intake: current Alcohol intake frequency: 0-2 drinks per day Alcohol type: hard liquor Patient Tobacco Use Status: Former Tobacco user Tobacco use type: Cigarette Years Smoked: 10 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al status: employed 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 Neuro: Median, ulnar, radial nerves motor and sensory intact and sensation is normal to the tips of all digits. Vascular: Cap refill brisk Pain: Patient reports no pain or tenderness to palpation at this time ROM: Patient is able to make closed fist Patient is able to gently oppose the right thumb to all fingers without any forceful gripping or pinching Able to extend right thumb fully Skin: Well-healed incision site over the right dorsal thumb. General: No ecchymosis, erythema, or evidence of infection. Psych: Appears grossly normal Affect normal Attitude cooperative Assessment & Plan Assessment & Plan (1) Arthritis of carpometacarpal (CMC) joint of right thumb: Code(s): M18.11 - Unilateral primary osteoarthritis of first carpometacarpal joint, right hand Category: Medical Plan 1. Right basal joint arthritis status post cesia trapeziectomy DOS 02/25/2024 Patient is recovering well postoperatively Patient is educated about the typical recovery course Patient is educated that she should continue to avoid any forceful gripping or pinching against the right thumb for another month, and should also continue to wear the thermal molded brace with daytime activities. Patient is also educated to continue working with occupational therapy for improvement of range of motion of the right thumb, and then in 1 month we will be able to ramp up the strengthening aspect of her OT course Patient will follow-up in 1 month for repeat [id number] check and postoperative appointment, sooner with any acute concerns Coding Level of Care Code Global (10892) Diagnoses Arthritis of carpometacarpal (CMC) joint of right thumb M18.11
== END 2024-04-22 14:51 | disposition home or self-care (01) ==
PROVIDERS: PCP Internal Medicine
DX: M18.11 Unilateral primary osteoarthritis of first carpometacarpal joint, right hand (principal)
CPT/HCPCS: 99024

== ENCOUNTER → 2024-04-22 13:21 | Outpatient (BNVA) | payer OTHER, SELFPAY | PROVIDERS: PCP Internal Medicine | DX: Z47.89 Encounter for other orthopedic aftercare (principal); Z87.39 Personal history of other diseases of the musculoskeletal system and connective tissue; Z98.890 Other specified postprocedural states | CPT/HCPCS: 99212 ==

== ENCOUNTER 2024-04-29 08:46 | Outpatient (REF) | payer OTHER, SELFPAY ==
[2024-04-29 15:22] LABS: Alanine Aminotransferase 53 U/L (0-31); Albumin Level 4.3 g/dL (3.5-5.0); Alkaline Phosphatase 111 U/L (39-117); Anion Gap 16 (12-20); Aspartate Amino Transferase 83 U/L (5-31); Bilirubin Total 0.9 mg/dL (0.0-1.0); Blood Urea Nitrogen 9 mg/dL (9-16); Calcium 9.7 mg/dL (8.4-10.2); Carbon Dioxide 18 mmol/L (22-29); Chloride 106 mmol/L (96-108); Estimated Glomerular Filt Rate > 60; Glucose Random 111 mg/dL (60-115); Potassium 3.8 mmol/L (3.3-5.1); Sodium 136 mmol/L (135-145); Total Protein 7.3 g/dL (6.5-8.0)
== END 2024-04-29 08:47 | disposition home or self-care (01) ==
LOC: HO.CHCLDS 08:46
PROVIDERS: Visit Provider Internal Medicine
DX: I10 Essential (primary) hypertension (principal)
CPT/HCPCS: 36415; 80053

== ENCOUNTER 2024-05-20 09:05 | Outpatient (AMB) | payer OTHER, SELFPAY ==
--- NOTE | 2024-05-20 09:17 | MHC.OFFVIS ---
Intake Visit Reasons: PO- 4 wk f/u Rt Thumb LRTI 02/25/24 Intake Note: Maisha is a 63 year old female who presents today for a post operative visit s/p Right basal joint arthroplasty with cesia trapezii ectomy and ligament reconstruction tendon interposition with a slip of APL tendon on 02/25/2024 w/ AR. Patient reports sharp pain, stiffness, and tightness in her right wrist, thumb and middle finger. She says this is causing her difficulty with grasping and lifting object. She is unable to push off her hand such as lifting herself up off a seat without this also causing pain. She has completed her OT and was given home exercises. She finds relief with applying a heat pad to her hand. Allergies hydrocodone [From Vicodin] Allergy (Intermediate, Verified 05/20/24 09:22) Rash HPI HPI PO- 4 wk f/u Rt Thumb LRTI 02/25/24: Details: Patient is a 63-year-old female who presents for 4 week follow-up status post right thumb LRTI, DOS 02/25/2024. Today, the patient reports that she is feeling well overall, but continues to experience some stiffness in her right thumb and wrist. The patient reports that OT has been going well, and then she feels her function has improved significantly. 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 No other acute complaints or concerns at this time. [facility] Medical History Elevated LFTs Arthritis Insomnia Fatty liver Chronic UTI (urinary tract infection) Recurrent UTI Surgical History Hx of tubal ligation Hx of section Hx of appendectomy Family History Mother Dementia Father Leukemia Brother Leukemia HTN (hypertension) Social History Household Members: Significant Other Caregiver staying overnight: No Housing: Apartment Are you a primary child care education coordinator to a significant other at home: No Do you presently have visiting nurse or other home services: No 75 years or older and lives alone: No Alcohol intake: current Alcohol intake frequency: 0-2 drinks per day Alcohol type: hard liquor Patient Tobacco Use Status: Former Tobacco user Tobacco use type: Cigarette Years Smoked: 10 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al status: employed 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: [employer] provision / rt hand Sexual orientation: Straight/Heterosexual Gender identity: Female Physical Exam Extrem Other: Patient is alert, oriented, and in no acute distress. Neuro: Patient reports normal sensation to the tips of all digits at this time Vascular: Cap refill brisk Pain: There is pain with active flexion and extension of the right wrist ROM: Patient is able to oppose the right thumb to all other digits of the right hand without difficulty Patient is able to both actively flex and extend the right wrist to approximately 45 degrees, but experiences pain with both of these motions. Skin: Well-healed incision site on the dorsal aspect of the basal joint of the right thumb. No lacerations or abrasions. General: No ecchymosis, erythema, or evidence of infection. Psych: Appears grossly normal Affect normal Attitude cooperative Assessment & Plan Assessment & Plan (1) Arthritis of carpometacarpal (CMC) joint of right thumb: Code(s): M18.11 - Unilateral primary osteoarthritis of first carpometacarpal joint, right hand Category: Medical Plan 1. Osteoarthritis of right thumb status post LRTI with Dr. Amanda BORJA 02/25/2024 Patient appears to be recovering well postoperatively Patient is educated about the typical recovery course Patient will be re-referred to occupational therapy, this time for strengthening, range of motion, and return to normal function of the right thumb, as she is now 3 months removed from surgery and can begin the process of strengthening of the right thumb back to normal Patient is still out of work, as her job was unable to provide any light duty that would not involve active pinching or gripping with the right thumb, the patient is informed today that if she is doing well at next visit, she can return to work. Patient is amenable to this plan Patient will follow-up in 4-6 weeks for [id number]-[id number] check with hopes of returned to work, sooner with any acute concerns Orders: Orders OT Evaluation and Treatment Today M18.12 - Unilateral primary osteoarthritis of first carpometacarpal joint, left hand Coding Level of Care Code Global (52935) Diagnoses Arthritis of carpometacarpal (CMC) joint of right thumb M18.11
== END 2024-05-20 09:39 | disposition home or self-care (01) ==
PROVIDERS: PCP Internal Medicine
DX: M18.11 Unilateral primary osteoarthritis of first carpometacarpal joint, right hand (principal)
CPT/HCPCS: 99024

== ENCOUNTER → 2024-05-20 09:05 | Outpatient (BNVA) | payer OTHER, SELFPAY | PROVIDERS: PCP Internal Medicine | DX: M25.531 Pain in right wrist (principal); M79.644 Pain in right finger(s); Z47.89 Encounter for other orthopedic aftercare; Z87.39 Personal history of other diseases of the musculoskeletal system and connective tissue | CPT/HCPCS: 99212 ==

== ENCOUNTER 2024-05-27 08:00 | Outpatient (RCR) | payer OTHER, SELFPAY ==
--- NOTE | 2024-03-31 11:34 | MHC.OT.EP ---
[address] [phone] Occupational Therapy Plan of Care Patient Name: Maisha Mcgraw Date of Evaluation: 03/31/24 Diagnosis: Pt is post op 02/25/2024 LRTI Pain Location: radial side of wrist and forearm Pain Score: 2 Pain Scale Used: Numeric (0 - 10) Aggravating Factors: Can become an 8/10 w/ certain movements of her R wrist Alleviating Factors: rest Assessment: Pt is a 63 yr. old R hand dominant female who has been experiencing pain and decreased use of her Right thumb for 6+ years. She says the pain began when she started working at the [employer] in [place]. She reports the pain increased overtime and she saw Nik Ricks. Pt had LRTI surgery on 02/25/2024. She had a follow up on 03/25/2024 and saw Melania Simon CHT for fabrication of a thumb spica orthoses right after her post op check up. Pt has been referred to skilled OT therapy for increased ROM, strength, and functional use of her dominant hand Pt presents today wearing her thumb spica hand based orthoses. Her thumb and wrist have limited ROM. Her thumb has minimal edema Frequency and Duration: The patient will be seen 2 xs aweek for 6 weeks Short Term Goals: Pt will report pain free ROM of her R wrist and thumb Pt will be complaint w/ orthoses wear Pt will be complaint w/HEP Penitentiary Goals: Pt will oppose the distal tip of her R thumb to the base of her SF w/ out difficulty Pt will be complaint w / joint protection techniques Pt will deny difficulty w/ carrying a light shopping bag in her R hand Treatment Plan: Therapeutic Exercise Therapeutic Activity Home Exercise Program Splinting Neuro Re-ed Patient Education Desensitization/Sensory Re-ed Edema Control ADL Training Ultrasound NMES Iontophoresis Paraffin Fluidotherapy MHP Cold Packs Joint Mobilization Soft Tissue Mobilization Kinesiotaping Other (see comments) Electronically Signed By: Sima Feng OTR/L Please Sign and return to therapist. Thank you once again for your referral.
== END 2024-06-03 12:57 | disposition home or self-care (01) ==
LOC: HO.OT 08:00
PROVIDERS: PCP Internal Medicine; Visit Provider Orthopaedic Surgery
DX: M18.12 Unilateral primary osteoarthritis of first carpometacarpal joint, left hand (principal)
CPT/HCPCS: 97035; 97110; 97140; 97165; 97535; 97760

== ENCOUNTER 2024-06-17 08:59 | Outpatient (AMB) | payer OTHER, SELFPAY ==
--- NOTE | 2024-06-17 09:31 | A.OFFVIS_ITS ---
Vital Signs 06/17/24 09:33 Height 5 ft 8 in Weight 119 lb BMI 18.1 Handedness Right Intake Visit Reasons: OV-4 wk f/u Rt Thumb LRTI 02/25/24-ROM check Intake Note: Maisha is a 63 year old female who presents today for a follow up s/p Right basal joint arthroplasty with cesia trapezii ectomy and ligament reconstruction tendon interposition with a slip of APL tendon on 02/25/2024 w/ Dr Patel. Patient reports her ROM is limited. She reports random sudden sharp pain localized at her CMC of her right thumb. She says she applies heat when this happens and finds relief. Allergies hydrocodone [From Vicodin] Allergy (Intermediate, Verified 06/17/24 09:33) Rash HPI HPI OV-4 wk f/u Rt Thumb LRTI 02/25/24-ROM check: Details: Patient is a 63-year-old female who presents for 4 week follow-up status post right thumb LRTI, DOS 02/25/2024. Today, the patient reports that she is feeling well overall, but continues to experience some stiffness in her right thumb and wrist. The patient reports that OT went very well, and they have since discharged her. The patient also reports that her function has continued for improve. 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 No other acute complaints or concerns at this time. [facility] Medical History Elevated LFTs Arthritis Insomnia Fatty liver Chronic UTI (urinary tract infection) Recurrent UTI Surgical History Hx of tubal ligation Hx of section Hx of appendectomy Family History Mother Dementia Father Leukemia Brother Leukemia HTN (hypertension) Social History Household Members: Significant Other Caregiver staying overnight: No Housing: Apartment Are you a primary pet care associate to a significant other at home: No Do you presently have visiting nurse or other home services: No 75 years or older and lives alone: No Alcohol intake: current Alcohol intake frequency: 0-2 drinks per day Alcohol type: hard liquor Patient Tobacco Use Status: Former Tobacco user Tobacco use type: Cigarette Years Smoked: 10 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al status: employed 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: [employer] provision / rt hand Sexual orientation: Straight/Heterosexual Gender identity: Female Physical Exam Vital Signs: BMI result Body Mass Index 18.1 Extrem Other: Patient is alert, oriented, and in no acute distress. Neuro: Patient reports normal sensation to the tips of all digits at this time Vascular: Cap refill brisk Pain: There is minimal pain with active flexion and extension of the right thumb ROM: Patient is able to oppose the right thumb to all other digits of the right hand without difficulty Patient is able to both actively flex and extend the right wrist to approximately 45 degrees, but experiences mild discomfort with both of these motions. Skin: Well-healed incision site on the dorsal aspect of the basal joint of the right thumb. No lacerations or abrasions. General: No ecchymosis, erythema, or evidence of infection. Psych: Appears grossly normal Affect normal Attitude cooperative Assessment & Plan Assessment & Plan (1) Arthritis of carpometacarpal (CMC) joint of right thumb: Code(s): M18.11 - Unilateral primary osteoarthritis of first carpometacarpal joint, right hand Category: Medical Plan 1. Osteoarthritis of right thumb status post LRTI with Dr. Amanda BORJA 02/25/2024 Patient appears to be recovering well postoperatively Patient is educated about the typical recovery course At this time, patient can be cleared for return to all activities beginning 07/18/2024 The patient states that she is still unable to work due to experiencing discomf ort with twisting of the right thumb and wrist, and also states that she plans to retire next month Patient is educated again on the importance of activity modification Patient understands this Patient is also educated on the importance of rest, ice, elevation, and as- needed [id number] pain medication for control of any other pain symptoms Patient will follow-up as needed with any acute concerns Coding Level of Care Code Est Pt Level 3 (69850) Diagnoses Arthritis of carpometacarpal (CMC) joint of right thumb M18.11
[2024-06-17 09:33] VITALS: BMI 18.1
== END 2024-06-17 09:46 | disposition home or self-care (01) ==
PROVIDERS: PCP Internal Medicine
DX: M18.11 Unilateral primary osteoarthritis of first carpometacarpal joint, right hand (principal)
CPT/HCPCS: 99213

== ENCOUNTER → 2024-06-17 08:59 | Outpatient (BNVA) | payer OTHER, SELFPAY | PROVIDERS: PCP Internal Medicine | DX: M18.11 Unilateral primary osteoarthritis of first carpometacarpal joint, right hand (principal) | CPT/HCPCS: 99212 ==

== ENCOUNTER 2024-07-28 13:03 | Outpatient (REF) | payer OTHER, SELFPAY ==
--- NOTE | ~2024-07-28 | MM_ITS ---
EXAMINATION: MM SCREENING DIGITAL BREAST TOMOSYNTHESIS, BILATERAL CLINICAL INFORMATION: Screening. Asymptomatic. COMPARISON: Mammography: Comparison is made with available priors TECHNIQUE: Digital breast mammography with tomosynthesis is performed in both the craniocaudal and mediolateral oblique views along with computer-aided detection (CAD). FINDINGS: The breasts are heterogeneously dense, which may obscure small masses (ACR BI-RADS breast composition Category c). Circumscribed oval mass upper outer left breast stable. There are no significant masses, abnormal calcifications, or other abnormalities. MM/MM tomosynthesis screening BI IMPRESSION: No mammographic evidence of malignancy. ASSESSMENT: BI-RADS BI-RADS 2 - Benign Findings RECOMMENDATION: Routine annual mammography screening. 1 year F/U This examination should not preclude the clinical evaluation of a suspicious palpable abnormality. This patient's information was entered into a reminder system with a target due date for their next mammogram. Electronically signed by: Polly Poole DO 08/06/2024 12:07 PM TAMMY
== END 2024-07-28 13:04 | disposition home or self-care (01) ==
LOC: HO.MAMMO 13:03
PROVIDERS: PCP Internal Medicine; Visit Provider Internal Medicine
DX: Z12.31 Encounter for screening mammogram for malignant neoplasm of breast (principal)
CPT/HCPCS: 77063; 77067

== ENCOUNTER → 2024-07-28 13:30 | Outpatient (BNV) | payer OTHER, SELFPAY | PROVIDERS: PCP Internal Medicine; Visit Provider Internal Medicine | DX: Z12.31 Encounter for screening mammogram for malignant neoplasm of breast (principal) | CPT/HCPCS: 77063; 77067 ==

== ENCOUNTER 2024-09-04 14:00 | Outpatient (AMB) | payer OTHER, SELFPAY ==
--- NOTE | 2024-09-04 14:09 | A.OFFVIS_ITS ---
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 She is doing well with technician assistant concerns. Currently not sexually active. Denies any vaginal dryness or irritation. STI testing offered; she declined Attempting to eat a healthy diet with calcium and vitamin D and stays active with exercise-walking. Last pap smear; 2021. Last mammogram; 2023. Colonoscopy is UTD. Denies any family history of breast, ovarian or colon cancer. [facility] Medical History Elevated LFTs Arthritis Insomnia Fatty liver Chronic UTI (urinary tract infection) Recurrent UTI Surgical History Hx of tubal ligation Hx of section Hx of appendectomy Family History Mother Dementia Father Leukemia Brother Leukemia HTN (hypertension) Maternal Aunt History of breast cancer Social History (Updated 09/04/24 @ 14:32 by Aleisha Warren CNM) Household Members: Significant Other Caregiver staying overnight: No Housing: Apartment Are you a primary director of patient care to a significant other at home: No Do you presently have visiting nurse or other home services: No 75 years or older and lives alone: No Alcohol intake: current Alcohol intake frequency: 0-2 drinks per day Alcohol type: hard liquor Patient Tobacco Use Status: Former Tobacco user Tobacco use type: Cigarette Years Smoked: 10 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al status: employed 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: Retired Sexual orientation: Straight/Heterosexual Gender identity: Female Female Reproductive History Menstrual control method: permanent sterilization Permanent Sterilization: BTL Menopause type: natural Total pregnancies: 2 Full term: 2 Number of Living Children: 2 Date of last pap smear: 05/12/22 (neg pap and hpv) Date of Mammogram: 07/28/24 (Birad 2) Review of Systems Const All systems reviewed & are unremarkable except as noted in HPI and below Reports as per HPI Eyes Reports no additional complaints ENT Reports no additional complaints Card Reports no additional complaints Resp Reports no additional complaints GI Reports as per HPI and Reports no additional complaints Reports as per HPI Musc Reports no additional complaints Skin/Breast Reports as per HPI Neuro Reports no additional complaints Psych Reports no additional complaints Endo Reports no additional complaints Julio/Lymph Reports no additional complaints Aller/Immun Reports no additional complaints Physical Exam Vital Signs: Last Vital Signs BP 122/84 09/04/24 14:10 BMI result Body Mass Index 19.2 Const General: cooperative, healthy appearing, no acute distress, well developed and alert Orientation/consciousness: patient oriented x3 HEENT Head: Yes normal to inspection Eyes General: appearance normal, both eyes and all related structures Neck Neck: Yes normal visual inspection Thyroid: Thyroid normal Chest Chest palpation & inspection: normal inspection of the chest and other (no puckering, dimpling, peau de orange, retraction, discharge, masses) Breast/axilla inspection: normal inspection of the breasts Breast/axilla palpation: normal palpation of the breasts Resp Effort & Inspection: normal respiratory effort GI Inspection: Yes normal to inspection and Yes scar Palpation (GI): Soft to palpation Rectal Exam - Female: deferred General: Yes bladder normal to palpation External Female Exam: normal external appearance and normal appearance of the urethra Speculum Exam - Vagina: normal appearance of the vagina, normal palpation, normal vaginal discharge and vagina atrophic Speculum Exam - Cervix: normal appearance of the cervix and normal palpation Bimanual exam- vagina & uterus: normal bimanual exam, normal palpation, uterine size normal, bladder normal to palpation, normal palpation and non-tender Bimanual Exam- Adnexa, other: no masses Skin General skin exam: no rashes or lesions noted Rashes: no rashes Neuro General: patient oriented x3 Cognition (Neuro): normal cognition Extrem General: Yes normal to inspection Psych Attitude: cooperative Thought process: Normal thought process present Assessment & Plan Assessment & Plan (1) Encounter for well woman exam with routine gynecological exam: Code(s): Z01.419 - Encounter for gynecological examination (general) (routine) without abnormal findings Category: Medical Plan Discussed: Current recommendations for pap smears per ASCCP guidelines. Breast awareness, periodic self breast exams and yearly mammogram. Maintain a healthy lifestyle, well balanced diet including Calcium 1,200 mg and Vitamin D 600 IU daily, and routine exercise. Contact the office with any postmenopausal bleeding. Patient verbalizes understanding and agrees to the plan of care. She was given opportunity to ask questions and all questions were answered to the best of my ability. RTO in 1 year for annual technician assistant exam. This note is constructed using voice recognition software. While every effort has been made to ensure accuracy, laser beam color scanner operator errors may have been included. Coding Level of Care Code Est Pt Prev Care 40-64y(84088) Diagnoses Encounter for well woman exam with routine gynecological exam Z01.419
[2024-09-04 14:10] VITALS: BP 122/84; BMI 19.2
== END 2024-09-04 14:35 | disposition home or self-care (01) ==
PROVIDERS: PCP Internal Medicine; Visit Provider Advanced Practice Midwife
DX: Z01.419 Encounter for gynecological examination (general) (routine) without abnormal findings (principal)
CPT/HCPCS: 99396

== ENCOUNTER → 2024-09-04 14:00 | Outpatient (BNVA) | payer OTHER, SELFPAY | PROVIDERS: PCP Internal Medicine; Visit Provider Advanced Practice Midwife | DX: Z01.419 Encounter for gynecological examination (general) (routine) without abnormal findings (principal) | CPT/HCPCS: 99396; 99459 ==

== ENCOUNTER 2024-09-29 08:55 | Outpatient (AMB) | payer OTHER, SELFPAY ==
--- NOTE | 2024-09-29 10:08 | A.OFFVIS_ITS ---
Intake Visit Reasons: 1 year follow up/Chronic UTI's Intake Note: Patient is present for 1 year follow up/ Chronic UTI's Urology Med: Antibiotic Allergy: None Blood Thinner: None Patient Symptoms: None Clerk Rating Required: No Allergies hydrocodone [From Vicodin] Allergy (Intermediate, Verified 09/29/24 10:48) Rash Medication List - Last Reviewed 09/29/24 by Mayelin Roe, DRIVER MATERIAL HANDLER alendronate 70 mg PO QWEEK ibuprofen 600 mg PO Q6-8H PRN losartan 50 mg PO QAM nitrofurantoin macrocrystal 100 mg orally 3x/week Mon/Wed/Fri; must administer with a meal/food HPI Comments Details: 09/29/24-- Maisha is here for follow-up she states she has been compliant with the Macrobid daily. She has not had another urinary tract infection. I have discussed tapering the dose of the Macrobid to 3 times a week for 1 month and then stopping the prescription. If she gets a UTI she is to call us otherwise I will have a follow-up with her in 6 months to re-evaluate. The patient states that she is being followed for a liver condition with her pr imary. She had an abdominal ultrasound in 11/06/2023 righr kidney was within normal limits. 09/28/23--Maisha is a 62-year-old female postmenopausal woman followed for chronic UTIs Doing well on Macrobid antibiotic suppressive therapy. Tries to eat a healthy diet including Calcium and Vitamin D and stays active. Currently less sexually active. The patient has been doing well on daily Macrobid will continue current therapy. Review of chart: Imaging: reviewed - 04/14/22-US ABDOMEN kidneys WNL, no stones PFSH Medical History Elevated LFTs Arthritis Insomnia Fatty liver Chronic UTI (urinary tract infection) Recurrent UTI Surgical History Hx of tubal ligation Hx of section Hx of appendectomy Family History Mother Dementia Father Leukemia Brother Leukemia HTN (hypertension) Maternal Aunt History of breast cancer Social History Household Members: Significant Other Caregiver staying overnight: No Housing: Apartment Are you a primary home care and home health aides teacher to a significant other at home: No Do you presently have visiting nurse or other home services: No 75 years or older and lives alone: No Alcohol intake: current Alcohol intake frequency: 0-2 drinks per day Alcohol type: hard liquor Patient Tobacco Use Status: Former Tobacco user Tobacco use type: Cigarette Years Smoked: 10 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al status: employed 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: Retired Sexual orientation: Straight/Heterosexual Gender identity: Female Review of Systems Const All systems reviewed & are unremarkable except as noted in HPI and below Reports no additional complaints Eyes Reports no additional complaints ENT Reports no additional complaints Card Reports no additional complaints Resp Reports no additional complaints GI Reports no additional complaints Reports as per HPI Musc Reports no additional complaints Skin/Breast Reports system reviewed and no additional complaints, except as documented Neuro Reports no additional complaints Psych Reports no additional complaints Endo Reports no additional complaints Julio/Lymph Reports no additional complaints Aller/Immun Reports no additional complaints Results AMB Urinalysis, Automated UA Leukoctes 70 Zoraida/uL Last Edit by Mayelin Roe CMA on 09/29/24 10:48 UA Nitrite Negative Last Edit by Mayelin Roe CMA on 09/29/24 10:48 UA Urobilinogen 2 mg/dL Last Edit by Mayelin Roe CMA on 09/29/24 10:48 UA Protein 30 mg/dL Last Edit by Mayelin Roe CMA on 09/29/24 10:48 UA pH 5.5 Last Edit by Mayelin Roe CMA on 09/29/24 10:48 UA Blood 0 Tim/uL Last Edit by Mayelin Roe CMA on 09/29/24 10:48 UA Specific [place] 1.015 Last Edit by Mayelin Roe CMA on 09/29/24 10: 48 UA Ketone Positive Last Edit by Mayelin Roe CMA on 09/29/24 10:48 UA Bilirubin 1 mg/dL Last Edit by Mayelin Roe CMA on 09/29/24 10:48 UA Glucose 0 mg/dL Last Edit by Mayelin Roe CMA on 09/29/24 10:48 Results Reviewed Results Reviewed: Date of Service: 10/31/23 US ABDOMEN LIMITED CLINICAL INFORMATION: Transaminitis. COMPARISON: Ultrasound abdomen complete 04/14/2022. TECHNIQUE: Real-time imaging of the right upper quadrant abdominal viscera. Limited visualization due to bowel gas. FINDINGS: PANCREAS: Limited visualization of pancreatic tail and head. Imaged portion of pancreatic body is unremarkable. LIVER: Increased hepatic parenchymal heterogeneity and echogenicity could be associated with hepatocellular disease/hepatic steatosis and substantially limits visualization. Correlation with liver function tests and clinical exam recommended to determine further management. GALLBLADDER: Tiny 1-2 mm possible gallbladder polyp. Previous exam demonstrated a 3.5 mm polyp. No gallbladder wall thickening. COMMON BILE DUCT: Normal in caliber measuring 0.3 cm in diameter. RIGHT KIDNEY: No hydronephrosis. No renal calculi. Limited visualization. The kidney measures 11.2 cm in maximum dimension. FREE FLUID: None. IMPRESSION: 1. Increased hepatic parenchymal heterogeneity and echogenicity could be associated with hepatocellular disease/hepatic steatosis and substantially limits visualization. Correlation with liver function tests and clinical exam recommended to determine further management. 2. Tiny 1-2 mm possible gallbladder polyp. Previous exam demonstrated a 3.5 mm polyp. Date of Service: 04/14/22 US ABDOMEN COMPLETE CLINICAL INFORMATION: Elevated liver test, rule out NAFLD. COMPARISON: None. TECHNIQUE: Real-time imaging of the abdominal viscera. FINDINGS: PANCREAS: Normal. ABDOMINAL AORTA: The proximal, mid, and distal segments are normal in caliber. INFERIOR VENA CAVA: Visualized portions are normal. LIVER: The liver is normal in size. The liver contour is normal. There is mild increased liver echogenicity. No focal hepatic lesion. There is no intrahepatic biliary duct dilatation seen. GALLBLADDER: There are small echogenic non-mobile polyp measuring 0.3 x 0.3 x 0.2 cm. The gallbladder is physiologically distended without evidence of stones, sludge, wall thickening or pericholecystic fluid. COMMON BILE DUCT: Normal in caliber measuring 0.5 cm in diameter. RIGHT KIDNEY: Normal. No hydronephrosis. No renal calculi or focal parenchymal lesions. The kidney measures 12.3 cm in maximum dimension. LEFT KIDNEY: Normal. No hydronephrosis. No renal calculi or focal parenchymal lesions. The kidney measures 11.6 cm in maximum dimension. SPLEEN: Normal. The spleen measures 12.6 cm in maximum dimension. FREE FLUID: None. IMPRESSION: Mild increased liver echogenicity without any focal lesion or intrahepatic ductal dilatation. ? A small gallbladder polyp. No echogenic stones seen. Assessment & Plan Assessment & Plan (1) Chronic UTI (urinary tract infection): Code(s): N39.0 - Urinary tract infection, site not specified Category: Medical Plan Taper Macrobid Sunday for a month and discontinue. Follow-up in 6 months. Orders: Orders AMB Urinalysis Automated Today Z13.9 - Encounter for screening, unspecified Medications: Changed From nitrofurantoin macrocrystal must administer with a meal/food 100 mg PO BEDTIME 90 days 90 caps 1RF To nitrofurantoin macrocrystal 100 mg orally 3x/week Sun/Sun/Sun; must administer with a meal/food 30 caps 0RF Patient Instructions: The patient had an opportunity to ask questions regarding treatment plan. The patient expressed understanding and agreement with the above treatment plan. The patient is aware they should contact our office by phone for worsening of their current condition or the appearance of new symptoms. Compliance is encouraged with any medications and followup testing that is ordered. It is a privilege to be allowed the opportunity to participate in the urologic care of your patient. If you have any questions or concerns regarding treatment for the above conditions please do not hesitate to contact me. The office telephone contact is [phone]. This note is constructed in part using voice recognition software. While every effort has been made to ensure accuracy senior scientist errors may have been included. Yours sincerely, Clarita Vasquez MD Coding Level of Care Code Est Pt Level 3 (09717) Diagnoses Chronic UTI (urinary tract infection) N39.0
--- NOTE | 2024-09-29 10:42 | MHC.OFFVIS ---
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 Accompanied by: Self / Same As Patient Allergies hydrocodone [From Vicodin] Allergy (Intermediate, Verified 09/04/24 14:10) Rash PFSH Medical History Elevated LFTs Arthritis Insomnia Fatty liver Chronic UTI (urinary tract infection) Recurrent UTI Surgical History Hx of tubal ligation Hx of section Hx of appendectomy Family History Mother Dementia Father Leukemia Brother Leukemia HTN (hypertension) Maternal Aunt History of breast cancer Social History Household Members: Significant Other Caregiver staying overnight: No Housing: Apartment Are you a primary rn managed care to a significant other at home: No Do you presently have visiting nurse or other home services: No 75 years or older and lives alone: No Alcohol intake: current Alcohol intake frequency: 0-2 drinks per day Alcohol type: hard liquor Patient Tobacco Use Status: Former Tobacco user Tobacco use type: Cigarette Years Smoked: 10 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al status: employed 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: Retired Sexual orientation: Straight/Heterosexual 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
== END 2024-09-29 10:46 | disposition home or self-care (01) ==
PROVIDERS: PCP Internal Medicine; Visit Provider Urology
DX: N39.0 Urinary tract infection, site not specified (principal); Z13.9 Encounter for screening, unspecified
CPT/HCPCS: 99213

== ENCOUNTER → 2024-09-29 08:55 | Outpatient (BNVA) | payer OTHER, SELFPAY | PROVIDERS: PCP Internal Medicine; Visit Provider Urology | DX: N39.0 Urinary tract infection, site not specified (principal) | CPT/HCPCS: 81003; 99212 ==

== ENCOUNTER 2025-03-30 13:01 | Outpatient (AMB) | payer OTHER, SELFPAY ==
--- NOTE | 2025-03-29 22:52 | MHC.OFFVIS ---
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 History of Present Illness - The patient is a 64-year-old female presenting with a follow-up for chronic urinary tract infection management. - She has been experiencing recurrent urinary tract infections, which have been managed with antibiotics. - Recently, she was without her medication for a week and a half, during which she began to develop symptoms of a urinary tract infection. - The patient is currently taking nitrofurantoin, administered on Sunday, Sunday, and Sunday. Plan - The patient will continue taking nitrofurantoin on daily, can taper to Sunday, Sunday, and Sunday prn to manage her chronic urinary tract infection. - A follow-up appointment is scheduled in nine months to reassess her condition and medication efficacy. 09/29/24-- Maisha is here for follow-up she states she has been compliant with the Macrobid daily. She has not had another urinary tract infection. I have discussed tapering the dose of the Macrobid to 3 times a week for 1 month and then stopping the prescription. If she gets a UTI she is to call us otherwise I will have a follow-up with her in 6 months to re-evaluate. The patient states that she is being followed for a liver condition with her primary. She had an abdominal ultrasound in 11/06/2023 righr kidney was within normal limits. 09/28/23--Maisha is a 62-year-old female postmenopausal woman followed for chronic UTIs Doing well on Macrobid antibiotic suppressive therapy. Tries to eat a healthy diet including Calcium and Vitamin D and stays active. Currently less sexually active. The patient has been doing well on daily Macrobid will continue current therapy. Review of chart: Imaging: reviewed - 04/14/22-US ABDOMEN kidneys WNL, no stones PFSH Medical History Elevated LFTs Arthritis Insomnia Fatty liver Chronic UTI (urinary tract infection) Recurrent UTI Surgical History Hx of tubal ligation Hx of section Hx of appendectomy Family History Mother Dementia Father Leukemia Brother Leukemia HTN (hypertension) Maternal Aunt History of breast cancer Social History Household Members: Significant Other Caregiver staying overnight: No Housing: Apartment Are you a primary wound care technician to a significant other at home: No Do you presently have visiting nurse or other home services: No 75 years or older and lives alone: No Alcohol intake: current Alcohol intake frequency: 0-2 drinks per day Alcohol type: hard liquor Patient Tobacco Use Status: Former Tobacco user Tobacco use type: Cigarette Years Smoked: 10 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al status: employed 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: Retired Sexual orientation: Straight/Heterosexual Gender identity: Female Review of Systems Const All systems reviewed & are unremarkable except as noted in HPI and below Reports no additional complaints Eyes Reports no additional complaints ENT Reports no additional complaints Card Reports no additional complaints Resp Reports no additional complaints GI Reports no additional complaints Reports as per HPI Musc Reports no additional complaints Skin/Breast Reports system reviewed and no additional complaints, except as documented Neuro Reports no additional complaints Psych Reports no additional complaints Endo Reports no additional complaints Julio/Lymph Reports no additional complaints Aller/Immun Reports no additional complaints Telehealth Telehealth Telehealth Platform: [facility] Location of provider rendering services: practice address Location of patient: address on file Patient Identification confirmed using: Name, : Yes Telehealth method: video Patient verbally consented to treatment: Yes Patient verbally consented to billing insurance company: Yes Patient informed of any privacy concerns related to visit: Yes Assessment & Plan Assessment & Plan (1) Chronic UTI (urinary tract infection): Code(s): N39.0 - Urinary tract infection, site not specified Category: Medical Plan Plan - The patient will continue taking nitrofurantoin on daily, can taper to Sunday, Sunday, and Sunday prn to manage her chronic urinary tract infection. - A follow-up appointment is scheduled in nine months to reassess her condition and medication efficacy. Medications: Changed From nitrofurantoin macrocrystal must administer with a meal/food 100 mg PO BEDTIME 90 caps 1RF 90 days To nitrofurantoin macrocrystal must administer with a meal/food 100 mg PO DAILY 90 caps 3RF 90 days Patient Instructions: The patient had an opportunity to ask questions regarding treatment plan. The patient expressed understanding and agreement with the above treatment plan. The patient is aware they should contact our office by phone for worsening of their current condition or the appearance of new symptoms. Compliance is encouraged with any medications and followup testing that is ordered. It is a privilege to be allowed the opportunity to participate in the urologic care of your patient. If you have any questions or concerns regarding treatment for the above conditions please do not hesitate to contact me. The office telephone contact is [phone]. This note is constructed in part using voice recognition software. While every effort has been made to ensure accuracy pulmonary function technician errors may have been included. Yours sincerely, Clarita Vasquez MD Scribe Plan - Not visible on output: Patient was informed and verbally consented to the use of an ambient scribe for clinic note documentation during this visit. Coding Level of Care Code Est Pt Level 3 (59585) Diagnoses Chronic UTI (urinary tract infection) N39.0
--- OUTSIDE RECORDS SUMMARY | 2025-03-30 13:58 | XMS_ITS | Encounter Summary ---
Author Organization [employer] Address [address] [place] [address] Care Team Providers Care [employer] Hvac R Instructor Name Role Phone Delio Murdock MD Primary Care Prov ider Reason for Visit * Reason Comments Med Refill Encounter Details Date Type Department Care Team ([facility] st Contact Info) Description 02/15/2024 Refill [facility] [address], [place] [phone] Delio Murdock MD [address] [place], [place] [phone] Primary hypertension Social History Tobacco Use Types Packs/Day Years Used Date Smoking Tobacco: Former Cigarettes 1 2016 Smokeless Tobacco: Never Alcohol Use Standard Drinks/Week Comments Yes 0 (1 standard drink = 0.6 oz pure alcohol) socially 1-2 hard liquor a month or less Depression Answer Date Recorded Patient Health Questionnaire-9 Score 0 11/19/2023 Patient Health Questionnaire-9 Score 0 11/19/2023 Last PHQ-9: Questionnaire Data Not on file 0 11/19/2023 Housing Stability Answer Date Recorded What is your housing situation today? I have [place] 11/19/[address] you li ve. Do you have problems with any of the following? None of the above 11/19/2023 Food Insecurity Answer Date Recorded Within the past 12 months, y ou worried that your food would run out before you got money to buy more: Never True 11/19/2023 Within the past 12 months,th e food you bought just didn't last and you didn't have enough money to get more: Never True 12/2023 Transportation Answer Date Recorded In the past 12 months, has l ack of transportation kept you from medical appts, meetings, work or from getting things needed for daily living? No 11/19/2023 Utilities Answer Date Recorded In the past 12 months, has t he electric, gas, oil or water company threatened to shut off services in your home? No 11/19/2023 Depression Answer Date Recorded Patient Health Questionnaire-2 Score 0 11/19/2023 Comments Unknown Sex and Gender Information Value Date Recorded Sex Assigned at Female 07/17/2022 10:36 AM EDT Legal Sex Female 10:36 AM EDT Gender Identity Female 07/17/2022 10:36 AM EDT Sexual Orientation Straight 07/17/2022 10 :36 AM EDT documented as of this encounter Plan of Treatment Not on file documented as of this encounter Visit Diagnoses Diagnosis Primary hypertension Unspecified essential hypertension documented in this encounter Additional Health Concerns Assessment Noted Time PHQ-9 Depression Total Score: 0 11/19/19 24 3:12 PM EST documented as of this encounter Care Teams [employer] Hvac R Instructor Relationship Specialty Start Date End Date Delio Murdock MD [address] [place] [id number] PCP - General Internal Medicine 08/23/22 documented as of this encounter
== END 2025-03-30 13:58 | disposition home or self-care (01) ==
LOC: HO.HUSH 13:01
PROVIDERS: PCP Internal Medicine; Visit Provider Urology
DX: N39.0 Urinary tract infection, site not specified (principal)
CPT/HCPCS: 99213

== ENCOUNTER → 2025-03-30 13:01 | Outpatient (BNVA) | payer OTHER, SELFPAY | PROVIDERS: PCP Internal Medicine; Visit Provider Urology | DX: N39.0 Urinary tract infection, site not specified (principal); Z71.89 Other specified counseling | CPT/HCPCS: 99212 ==